=== PATIENT | female | born 1965 | race African-American/Black ===

== ENCOUNTER 2017-10-02 21:21 | Emergency (ER) | payer OTHER ==
[~2017-10-02 21:21] MED LIST: ISOVUE-370 76%-LOCM 1 ML ONE
[2017-10-02 21:47] LABS: Bilirubin Negative (Negative); Blood, Urine Negative (Negative); Glucose, Urine (Dipstick) Negative (Negative); Ketone, Urine Negative (Negative); Nitrite Positive (Negative); Protein, Urine (Dipstick) Negative (Neg-Trace); Urobilinogen 0.2 mg/dL (0.2-1.0)
[2017-10-02 21:50] LABS: Bacteria/HPF None Seen HPF (None Seen); Hyaline Casts/LPF 0-3 HYALINE CAST LPF (0-3 Hyaline); RBC/HPF 0-3 HPF (0-3); Squamous Epithelial None Seen HPF (0-3); WBC/HPF None Seen HPF (0-3)
[2017-10-02 22:33] LABS: Hematocrit 45.5 % (36.0-47.0); Mean Platelet Volume 8.9 fL (7.4-10.4); Metamyelocyte 1 % (0-0); Neutrophil 48 % (42-75); Reactive Lymphocytes 7 % (0-10)
[2017-10-02 22:34] LABS: ALT (SGPT) 29 U/L (8-55); AST (SGOT) 38 U/L (5-34); Alkaline Phosphatase 92 U/L (40-150); Anion Gap 13 mmol/L (10-20); BUN (Urea Nitrogen) 10 mg/dL (9.8-20.1); Bilirubin, Total 0.8 mg/dL (0.2-1.2); Calc. Creatinine Clearance 0 mL/min (70-130); Calcium 9.3 mg/dL (7.8-10.44); Carbon Dioxide 27 mmol/L (22-29); Chloride 103 mmol/L (98-107); Estimated GFR-MDRD Greater than 90; Globulin 4.4 g/dL (2.4-3.5); Lipase 9 U/L (8-78); Protein, Total 8.4 g/dL (6.0-8.3)
--- NOTE | 2017-10-02 22:49 | CT ---
CT ABDOMEN AND PELVIS WITH IV CONTRAST 10/02/17 HISTORY: Abdominal pain. COMPARISON: 10/03/16. FINDINGS: The lung bases are clear. The gallbladder is surgically absent. The lobular fluid density lesion with in the spleen is stable and likely represents a hemangioma. No free fluid or free air are apparent. T he urinary bladder is unremarkable. There are degenerative changes of the lumbar spine. Motion artifa ct and lack of oral contrast limit detail. There is no evidence of bowel obstruction. IMPRESSION: Chronic type findings appear stable. No acute abnormalities are demonstrated. POS: [facility]
[2017-10-02] MEDS ORDERED: Ondansetron HCl/PF 4 MG/2 ML Vial ONE (22:51)
[2017-10-02] MEDS ORDERED: Ketorolac Tromethamine 30 MG/ML VIAL ONE (22:51)
== END 2017-10-02 23:54 | disposition home or self-care (01) ==
LOC: ERS 21:21
DX: R10.9 Unspecified abdominal pain (principal); I10 Essential (primary) hypertension; Z79.899 Other long term (current) drug therapy
CPT/HCPCS: 74177; 80053; 81003; 81015; 83690; 85025; 87086; 96361; 96374; 96375; J1885; J2405

== ENCOUNTER 2017-10-27 06:54 | Outpatient (CLI) | payer OTHER ==
--- NOTE | 2017-10-27 09:15 | ULT ---
COMPLETE ABDOMEN ULTRASOUND: INDICATION: Right upper quadrant pain and gastroesophageal reflux disease. FINDINGS: The visualized abdominal aorta and IVC are unremarkable. The visualized liver demonstrated no focal lesion. The spleen measured 11 cm in size. There are multiple cystic cysts seen within the medial aspect of the spleen likely corresponding to the hypodensity noted on the prior exam. Portions of the lesion a ppear solid. Visualized aspects of the pancreas are unremarkable. The gallbladder is surgically absent. The common bile duct measures 3 mm. The right kidney measures 11.3 cm in length and left measures 10.3 cm in length. IMPRESSION: 1. Stable partially cystic lesion within the spleen found to be stable over a 3-year time period 2013 is suspicious for hemangioma. 2. Cholecystectomy. 3. No definite acute sonographic abnormalities. POS: [facility]
== END 2017-10-27 06:55 | disposition home or self-care (01) ==
LOC: ULT 06:54
PROVIDERS: ATTEND Nurse Practitioner Family
DX: K21.9 Gastro-esophageal reflux disease without esophagitis (principal); R10.11 Right upper quadrant pain; R30.0 Dysuria; E66.01 Morbid (severe) obesity due to excess calories; K86.2 Cyst of pancreas; Z90.49 Acquired absence of other specified parts of digestive tract
CPT/HCPCS: 76700

== ENCOUNTER 2018-01-15 14:40 | Outpatient (CLI) | payer OTHER | END 2018-01-15 14:41 | disposition home or self-care (01) | LOC: BICMAMMO 14:40 | PROVIDERS: ATTEND Nurse Practitioner Family | DX: Z12.31 Encounter for screening mammogram for malignant neoplasm of breast (principal) | CPT/HCPCS: 77067 ==

== ENCOUNTER 2018-07-03 13:25 | Outpatient (CLI) | payer OTHER ==
--- NOTE | 2018-07-03 15:17 | ULT ---
RIGHT LOWER EXTREMITY VENOUS DOPPLER: Date: 07/03/18 HISTORY: Right-sided leg pain. COMPARISON: None. FINDINGS: Real-time Greco scale and color Doppler with spectral analysis of the right lower extremity venous sy stem was performed. The common femoral, femoral, proximal portions of greater saphenous and deep femo ral veins, as well as the popliteal and posterior tibial veins were interrogated. Normal flow, augmentation, and compression. IMPRESSION: No deep venous thrombosis. POS: [facility]
--- NOTE | 2018-07-03 16:14 | ULT ---
ULTRASOUND DOPPLER DUPLEX ARTERIAL RIGHT LOWER EXTREMITY: 07/03/18 HISTORY: 52-year-old with: M79.604, right leg pain. M25.561, pain in right knee. TECHNIQUE: Color flow, spectral analysis, and greco scale images of major arteries of right lower extremity. FINDINGS: Greco scale visualization of the arteries is limited because of body habitus. Highest peak systolic ve locities given in cm/s, followed by pulsed doppler waveforms. Common femoral: 160, triphasic. Profunda femoral: 75, biphasic. Superficial femoral, proximal: 145, triphasic. Superficial femoral, mid: 165, triphasic. Superficial femoral, distal: 45, question biphasic versus triphasic. Popliteal: 50, biphasic. Anterior tibial: 25, biphasic. Posterior tibial: 20, triphasic. Dorsalis pedis: 25, biphasic. IMPRESSION: Large drop in peak systolic velocity between the mid and distal portions of the right superficial fem oral artery, suggestive of high grade stenosis there. POS: [facility]
== END 2018-07-03 13:26 | disposition home or self-care (01) ==
LOC: ULT 13:25
PROVIDERS: ATTEND Nurse Practitioner Family
DX: M23.91 Unspecified internal derangement of right knee (principal); M25.561 Pain in right knee; M79.604 Pain in right leg; I10 Essential (primary) hypertension
CPT/HCPCS: 93923

== ENCOUNTER 2018-12-05 03:59 | Emergency (ER) | payer OTHER ==
[2018-12-05 04:52] LABS: #Basophils 0.1 thou/uL (0.0-0.2); #Eosinphils 0.2 thou/uL (0.0-0.7); #Lymphocytes 1.5 thou/uL (1.20-3.40); #Monocytes 0.7 thou/uL (0.11-0.59); %Basophils 0.9 % (0.0-1.0); %Eosinophils 2.6 % (0.0-10.0); %Lymphocytes 23.8 % (21.0-51.0); %Monocytes 11.1 % (0.0-10.0); %Neutrophils 61.6 % (42.0-75.0); Hemoglobin 15.2 g/dL (12.0-16.0); Mean Corpuscular HGB CONC 31.9 g/dL (32.0-36.0); Mean Corpuscular Hemoglobin 28.3 pg (27.0-31.0); Mean Corpuscular Volume 88.5 fL (78.0-98.0); Mean Platelet Volume 9.3 fL (7.4-10.4); Platelet Count 193 thou/uL (130-400); RBC Distribution Width 12.4 % (11.5-14.5); Red Blood Cell (RBC) Count 5.37 mill/uL (4.20-5.40); White Blood Cell (WBC) Count 6.4 thou/uL (4.8-10.8)
[2018-12-05 04:53] LABS: Bilirubin Negative (Negative); Blood, Urine Negative (Negative); Glucose, Urine (Dipstick) Negative (Negative); Leukocyte Negative (Negative); Nitrite Negative (Negative); Protein, Urine (Dipstick) Negative (Neg-Trace); Urobilinogen 0.2 mg/dL (0.2-1.0)
[2018-12-05 04:54] LABS: Clarity Clear (Clear)
[2018-12-05 04:55] LABS: Specific Gravity, Urine 1.003 (1.002-1.036)
[2018-12-05 05:16] LABS: ALT (SGPT) 18 U/L (8-55); AST (SGOT) 17 U/L (5-34); Albumin 4.2 g/dL (3.5-5.0); Alkaline Phosphatase 95 U/L (40-150); Anion Gap 13 mmol/L (10-20); BUN (Urea Nitrogen) 11 mg/dL (9.8-20.1); Bilirubin, Total 1.1 mg/dL (0.2-1.2); Calc. Creatinine Clearance 0 mL/min (70-130); Calcium 10.3 mg/dL (7.8-10.44); Carbon Dioxide 28 mmol/L (22-29); Chloride 103 mmol/L (98-107); Estimated GFR-MDRD Greater than 90; Globulin 3.7 g/dL (2.4-3.5); Glucose 107 mg/dL (70-105); Potassium 3.7 mmol/L (3.5-5.1); Protein, Total 7.9 g/dL (6.0-8.3); Sodium 140 mmol/L (136-145)
== END 2018-12-05 06:45 | disposition home or self-care (01) ==
LOC: ERS 03:59
DX: F41.9 Anxiety disorder, unspecified (principal); I10 Essential (primary) hypertension; Z79.899 Other long term (current) drug therapy
CPT/HCPCS: 36415; 80053; 81003; 84484; 85025; 93005

== ENCOUNTER 2019-01-21 13:50 | Outpatient (CLI) | payer OTHER ==
--- NOTE | 2019-01-22 10:47 | MMO ---
Bilateral MAMMO Bilat Screen [facility]. CLINICAL HISTORY: Patient is 53 years old and is seen for screening. The patient has the following family history of breast cancer: maternal aunt. The patient has no personal history of cancer. The patient has a history of left Excisional Biopsy - benign. VIEWS: The views performed were: bilateral craniocaudal and bilateral mediolateral oblique. FILMS COMPARED: The present examination has been compared to prior imaging studies performed at [facility] on 01/05/2015, 01/12/2016, 01/14/2017 and 01/15/2018, and at [facility] on 10/04/2010, 10/15/2011, 11/02/2012, 11/03/2013 and 11/04/2013. This study has been interpreted with the assistance of computer-aided detection. MAMMOGRAM FINDINGS: There are scattered fibroglandular densities. Finding 1: There are benign appearing calcifications seen in both breasts. Finding 2: There is a biopsy clip seen in the left breast. There are no suspicious masses, calcifications or areas of architectural distortion. IMPRESSION: ALL ABOVE FINDINGS ARE BENIGN. A ROUTINE FOLLOW-UP MAMMOGRAM IN 1 YEAR IS RECOMMENDED. ACR BI-RADS Category 2 - Benign finding MAMMOGRAPHY NOTE: 1. A negative mammogram report should not delay a biopsy if a dominant of clinically suspicious mass is present. 2. Approximately 10% to 15% of breast cancers are not detected by mammography. 3. Adenosis and dense breasts may obscure an underlying neoplasm.
== END 2019-01-21 13:51 | disposition home or self-care (01) ==
LOC: BICMAMMO 13:50
PROVIDERS: ATTEND Nurse Practitioner Family
DX: Z12.31 Encounter for screening mammogram for malignant neoplasm of breast (principal); R92.1 Mammographic calcification found on diagnostic imaging of breast; Z80.3 Family history of malignant neoplasm of breast; Z91.89 Other specified personal risk factors, not elsewhere classified; Z98.890 Other specified postprocedural states
CPT/HCPCS: 77067

== ENCOUNTER 2019-11-22 08:38 | Outpatient (CLI) | payer OTHER ==
--- NOTE | 2019-11-22 10:29 | ULT ---
ABDOMINAL ULTRASOUND: Date: 11/22/2019 HISTORY: Abdominal pain. COMPARISON: CT examination of 10/02/2017. FINDINGS: Real-time imaging of the upper abdomen shows the gallbladder to have been removed. The common duct is 4 mm. The liver measures 17 cm in length. It shows no focal abnormalities. Splenic mass is again dem onstrated. This appears stable as compared to a previous [address] CT and measures 6.2 x 7.4 cm in size co mplex with some cystic appearing components which has been described as a hemangioma. The pancreas is fairly well imaged. Abdominal aorta and IVC regions are unremarkable. Right and left kidneys are within normal limits of size and not obstructed. IMPRESSION: 1. Stable appearance to a complex splenic mass. 2. Post cholecystectomy change. POS: [facility]
== END 2019-11-22 08:39 | disposition home or self-care (01) ==
LOC: BICULT 08:38
PROVIDERS: ATTEND Nurse Practitioner Family
DX: K21.9 Gastro-esophageal reflux disease without esophagitis (principal); A04.8 Other specified bacterial intestinal infections; R10.9 Unspecified abdominal pain; E80.6 Other disorders of bilirubin metabolism; R16.1 Splenomegaly, not elsewhere classified; Z90.49 Acquired absence of other specified parts of digestive tract
CPT/HCPCS: 93975

== ENCOUNTER 2020-01-24 14:04 | Outpatient (CLI) | payer OTHER ==
--- NOTE | 2020-01-24 15:32 | MMO ---
Bilateral MAMMO Bilat Screen [facility]. CLINICAL HISTORY: Patient is 54 years old and is seen for screening. The patient has the following family history of breast cancer: maternal aunt. The patient has no personal history of cancer. The patient has a history of left Excisional Biopsy - benign. VIEWS: The views performed were: bilateral craniocaudal and bilateral mediolateral oblique. FILMS COMPARED: The present examination has been compared to prior imaging studies performed at [facility] on 01/12/2016, 01/14/2017, 01/15/2018 and 01/21/2019. This study has been interpreted with the assistance of computer-aided detection. MAMMOGRAM FINDINGS: There are scattered fibroglandular densities. Finding 1: There are stable benign appearing calcifications seen in both breasts. Finding 2: There are stable amorphous or indistinct calcifications with associated biopsy clip seen in the upper-outer region of the left breast. Finding 3: Stable bilateral dilated ducts. There are no suspicious masses, suspicious calcifications, or new areas of architectural distortion. IMPRESSION: THERE IS NO MAMMOGRAPHIC EVIDENCE OF MALIGNANCY. A ROUTINE FOLLOW-UP MAMMOGRAM IN 1 YEAR IS RECOMMENDED. ACR BI-RADS Category 2 - Benign finding MAMMOGRAPHY NOTE: 1. A negative mammogram report should not delay a biopsy if a dominant of clinically suspicious mass is present. 2. Approximately 10% to 15% of breast cancers are not detected by mammography. 3. Adenosis and dense breasts may obscure an underlying neoplasm. Reported by: ISIDRO LERNER MD Electonically Signed: [id number]
== END 2020-01-24 14:05 | disposition home or self-care (01) ==
LOC: BICMAMMO 14:04
PROVIDERS: ATTEND Nurse Practitioner Family
DX: Z12.31 Encounter for screening mammogram for malignant neoplasm of breast (principal); Z80.3 Family history of malignant neoplasm of breast; Z91.89 Other specified personal risk factors, not elsewhere classified
CPT/HCPCS: 77067

== ENCOUNTER 2021-01-25 14:19 | Outpatient (CLI) | payer OTHER | END 2021-01-25 14:20 | disposition home or self-care (01) | LOC: BICMAMMO 14:19 | PROVIDERS: ATTEND Nurse Practitioner Family | DX: Z12.31 Encounter for screening mammogram for malignant neoplasm of breast (principal); Z80.3 Family history of malignant neoplasm of breast | CPT/HCPCS: 77067 ==

== ENCOUNTER 2021-02-07 14:42 | Outpatient (CLI) | payer OTHER | END 2021-02-07 14:43 | disposition home or self-care (01) | LOC: BICMAMMO 14:42 | PROVIDERS: ATTEND Nurse Practitioner Family | DX: N64.89 Other specified disorders of breast (principal) | CPT/HCPCS: G0279 ==

== ENCOUNTER 2021-05-10 14:40 | Outpatient (CLI) | payer OTHER | END 2021-05-10 14:41 | disposition home or self-care (01) | LOC: BICMAMMO 14:40 | PROVIDERS: ATTEND Registered Nurse | DX: N64.4 Mastodynia (principal) | CPT/HCPCS: G0279 ==

== ENCOUNTER → 2021-06-29 | Day surgery (SDC) | payer OTHER | LOC: BICULT 12:46 | PROVIDERS: ATTEND Surgery | PROC: 0H9T3ZX Drainage of Right Breast, Percutaneous Approach, Diagnostic (ICD-10-PCS; principal; 2021-06-29) | DX: N64.89 Other specified disorders of breast (principal); Z88.5 Allergy status to narcotic agent | CPT/HCPCS: 19083; 88305; 88341; 88342 ==

== ENCOUNTER 2021-07-20 07:29 | Day surgery (SDC) | payer OTHER ==
[2021-07-18 16:49] VITALS: BMI 48.5
[2021-07-20] MEDS ORDERED: Ketorolac Tromethamine 30 MG/ML VIAL ONE (09:23)
[2021-07-20] MEDS ORDERED: Bupivacaine 0.25% HCL 30 ML VIAL ONE (09:49)
[2021-07-20] MEDS ORDERED: Lidocaine 1% w/Epinephrine 1:100K 30 ML VIAL ONE (09:49)
[2021-07-20] MEDS ORDERED: Fentanyl 100 MCG/2 ML VIAL ONE (09:51)
[2021-07-20] MEDS ORDERED: PHENYLEPHRINE-NS 100 MCG/ML 10 ML SYRINGE ONE (10:05)
[2021-07-20] MEDS ORDERED: Lidocaine 1% PF 5 ML VIAL ONE (10:05)
[2021-07-20] MEDS ORDERED: ePHEDrine 50 MG/ML VIAL ONE (10:05)
[2021-07-20] MEDS ORDERED: PROPOFOL 200 MG/20 ML VIAL ONE (10:05)
[2021-07-20] MEDS ORDERED: Ondansetron PF 4 MG/2 ML Vial ONE (10:05)
[2021-07-20] MEDS ORDERED: Dexamethasone 20 MG/5 ML VIAL ONE (10:05)
[2021-07-20] MEDS ORDERED: Glycopyrrolate 0.2 MG/ML 5 ML SYRINGE ONE (10:05)
[2021-07-20] MEDS ORDERED: Isosulfan Blue 50 MG/5 ML VIAL ONE (10:24)
== END 2021-07-20 13:55 | disposition home or self-care (01) ==
LOC: SDC 07:29
PROVIDERS: ATTEND Surgery
PROC: 0HBT0ZZ Excision of Right Breast, Open Approach (ICD-10-PCS; principal; 2021-07-20)
DX: D24.1 Benign neoplasm of right breast (principal); N60.21 Fibroadenosis of right breast; N60.31 Fibrosclerosis of right breast; I10 Essential (primary) hypertension; K21.9 Gastro-esophageal reflux disease without esophagitis; E66.9 Obesity, unspecified; Z68.42 Body mass index [BMI] 45.0-49.9, adult; Z88.5 Allergy status to narcotic agent; Z88.8 Allergy status to other drugs, medicaments and biological substances; Z79.890 Hormone replacement therapy; Z79.899 Other long term (current) drug therapy; Z90.49 Acquired absence of other specified parts of digestive tract; Z90.710 Acquired absence of both cervix and uterus; Z98.890 Other specified postprocedural states; Z87.19 Personal history of other diseases of the digestive system
CPT/HCPCS: 76098; 88307; J0690; J1100; J1885; J2405; J2704; J3010; J3490; Q9968; S0020

== ENCOUNTER 2021-09-13 10:06 | Outpatient (CLI) | payer OTHER | END 2021-09-13 10:07 | disposition home or self-care (01) | LOC: BICMAMMO 10:06 | PROVIDERS: ATTEND Surgery | DX: N60.11 Diffuse cystic mastopathy of right breast (principal) | CPT/HCPCS: G0279 ==

== ENCOUNTER 2021-10-16 12:54 | Outpatient (CLI) | payer OTHER | END 2021-10-16 12:55 | disposition home or self-care (01) | LOC: BICRAD 12:54 | PROVIDERS: ATTEND Nurse Practitioner Family | DX: M54.2 Cervicalgia (principal); M62.838 Other muscle spasm; M47.812 Spondylosis without myelopathy or radiculopathy, cervical region | CPT/HCPCS: 72052 ==

== ENCOUNTER 2021-10-18 07:14 | Observation (INO) | payer OTHER ==
[2021-10-18 08:15] LABS: Bilirubin Negative (Negative); Blood, Urine Negative (Negative); Clarity Clear (Clear); Glucose, Urine (Dipstick) Normal (Negative); Ketone, Urine Negative (Negative); Leukocyte Negative Leu/uL (Negative); Nitrite Negative (Negative); Protein, Urine (Dipstick) Negative (Neg-Trace); Specific Gravity, Urine 1.005 (1.002-1.036); Urobilinogen Normal mg/dL (Less than 2)
[2021-10-18 08:28] LABS: #Basophils 0.1 thou/uL (0.0-0.2); #Lymphocytes 1.3 thou/uL (1.20-3.40); #Monocytes 0.5 thou/uL (0.11-0.59); #Neutrophils 2.5 thou/uL (1.40-6.50); %Basophils 1.4 % (0.0-1.0); %Eosinophils 1.1 % (0.0-10.0); %Lymphocytes 29.4 % (21.0-51.0); %Monocytes 11.5 % (0.0-10.0); %Neutrophils 56.7 % (42.0-75.0); Hemoglobin 14.7 g/dL (12.0-16.0); Mean Corpuscular HGB CONC 32.2 g/dL (32.0-36.0); Mean Corpuscular Hemoglobin 28.3 pg (27.0-31.0); Platelet Count 178 thou/uL (130-400); RBC Distribution Width 12.4 % (11.5-14.5); White Blood Cell (WBC) Count 4.5 thou/uL (4.8-10.8)
[2021-10-18 08:42] LABS: ALT (SGPT) 15 U/L (8-55); AST (SGOT) 17 U/L (5-34); Albumin 3.8 g/dL (3.5-5.0); Alkaline Phosphatase 90 U/L (40-110); Anion Gap 10 mmol/L (10-20); BUN (Urea Nitrogen) 10 mg/dL (9.8-20.1); CK (CPK) 107 U/L (29-168); Calc. Creatinine Clearance 0 mL/min (70-130); Calcium 9.7 mg/dL (7.8-10.44); Carbon Dioxide 31 mmol/L (22-29); Chloride 105 mmol/L (98-107); Globulin 3.9 g/dL (2.4-3.5); Glucose 103 mg/dL (70-105); Potassium 3.8 mmol/L (3.5-5.1); Protein, Total 7.7 g/dL (6.0-8.3); Sodium 142 mmol/L (136-145)
[2021-10-18] MEDS ORDERED: Enoxaparin Sodium 40 MG/0.4 ML SYRINGE SC SCH (10:45)
[2021-10-18] MEDS ORDERED: Gabapentin 300 MG CAP PO SCH (10:45)
[2021-10-18] MEDS ORDERED: busPIRone HCl 10 MG TAB PO SCH (10:45)
[2021-10-18] MEDS ORDERED: Atenolol 25 MG TAB PO SCH (10:45)
[2021-10-18] MEDS ORDERED: Potassium Chloride 20 MEQ TAB PO SCH (11:00)
[2021-10-18 12:19] LABS: SARS-CoV-2 NAA Rapid Test Not Detected (NotDetected)
[2021-10-18 14:26] VITALS: BMI 49.8
[2021-10-18] MEDS: Acetaminophen 325 MG TAB PO PRN (16:05)
[2021-10-18] MEDS ORDERED: Cyclobenzaprine 10 MG TAB PO SCH (21:00)
[2021-10-18] MEDS: Atenolol 25 MG TAB PO SCH (21:31)
[2021-10-18] MEDS: Gabapentin 300 MG CAP PO SCH (21:32)
[2021-10-18] MEDS: busPIRone HCl 10 MG TAB PO SCH (21:32)
[2021-10-19 04:44] LABS: #Eosinphils 0.1 thou/uL (0.0-0.7); #Lymphocytes 2.1 thou/uL (1.20-3.40); #Monocytes 0.8 thou/uL (0.11-0.59); #Neutrophils 2.3 thou/uL (1.40-6.50); %Basophils 0.4 % (0.0-1.0); %Eosinophils 2.6 % (0.0-10.0); %Lymphocytes 39.9 % (21.0-51.0); %Monocytes 14.1 % (0.0-10.0); %Neutrophils 42.9 % (42.0-75.0); Mean Corpuscular HGB CONC 31.9 g/dL (32.0-36.0); Mean Corpuscular Hemoglobin 28.2 pg (27.0-31.0); Mean Corpuscular Volume 88.2 fL (78.0-98.0); Mean Platelet Volume 7.9 fL (7.4-10.4); Platelet Count 169 thou/uL (130-400); RBC Distribution Width 12.2 % (11.5-14.5); Red Blood Cell (RBC) Count 4.62 mill/uL (4.20-5.40); White Blood Cell (WBC) Count 5.3 thou/uL (4.8-10.8)
[2021-10-19 05:05] LABS: Anion Gap 9 mmol/L (10-20); BUN (Urea Nitrogen) 12 mg/dL (9.8-20.1); Calc. Creatinine Clearance 218 mL/min (70-130); Carbon Dioxide 28 mmol/L (22-29); Cardiac Risk 2.7 (Less than 4.5); Chloride 106 mmol/L (98-107); Cholesterol 101 mg/dl (< 200 Desired); Glucose 89 mg/dL (70-105); HDL Cholesterol 37 mg/dL (>60 Neg Risk); LDL Cholesterol, Calculated 56 mg/dL; Potassium 3.4 mmol/L (3.5-5.1); Sodium 140 mmol/L (136-145); Triglycerides 39 mg/dL (Less than 150)
[2021-10-19] MEDS ORDERED: Potassium Chloride 20 MEQ TAB PO SCH (08:00)
[2021-10-19] MEDS: Gabapentin 300 MG CAP PO SCH (09:00)
[2021-10-19] MEDS: busPIRone HCl 10 MG TAB PO SCH (09:00)
[2021-10-19] MEDS: Atenolol 25 MG TAB PO SCH (09:00)
[2021-10-19] MEDS ORDERED: Enoxaparin Sodium 40 MG/0.4 ML SYRINGE SC SCH (09:00)
[2021-10-19] MEDS ORDERED: Aspirin 81 mg Enteric Coated Tablet PO SCH (09:00)
[2021-10-19] MEDS: Acetaminophen 325 MG TAB PO PRN (12:07)
[2021-10-19 15:39] VITALS: BP 120/58; TEMP 97.3
== END 2021-10-19 19:05 | disposition home or self-care (01) ==
LOC: ERS 07:14 → ERHOLD 09:53 → NEURO 13:39
PROVIDERS: ADMIT Student in an Organized Health Care Education/Training Program; ATTEND Family Medicine
DX: R53.1 Weakness (principal); R20.2 Paresthesia of skin; I10 Essential (primary) hypertension; M17.0 Bilateral primary osteoarthritis of knee; I34.0 Nonrheumatic mitral (valve) insufficiency; R26.89 Other abnormalities of gait and mobility; H91.90 Unspecified hearing loss, unspecified ear; M47.812 Spondylosis without myelopathy or radiculopathy, cervical region; M47.814 Spondylosis without myelopathy or radiculopathy, thoracic region; M47.816 Spondylosis without myelopathy or radiculopathy, lumbar region; E66.01 Morbid (severe) obesity due to excess calories; Z68.42 Body mass index [BMI] 45.0-49.9, adult; Z79.899 Other long term (current) drug therapy; Z88.5 Allergy status to narcotic agent; Z88.8 Allergy status to other drugs, medicaments and biological substances; Z20.822 Contact with and (suspected) exposure to COVID-19
CPT/HCPCS: 36415; 70450; 70551; 72050; 72072; 72100; 80048; 80053; 80061; 81003; 82550; 84484; 85025; 93005; 93306; 96372; G0378; J1650; U0002

== ENCOUNTER 2021-10-20 12:35 | Inpatient (IN) | payer OTHER ==
[2021-10-20] MEDS ORDERED: Ondansetron PF 4 MG/2 ML Vial IVP PRN (13:09)
[2021-10-20] MEDS ORDERED: Enoxaparin Sodium 40 MG/0.4 ML SYRINGE SC SCH (13:15)
[2021-10-20] MEDS ORDERED: Loratadine 10 MG TAB PO PRN (13:28)
[2021-10-20] MEDS ORDERED: Atenolol 25 MG TAB PO SCH (13:30)
[2021-10-20] MEDS ORDERED: Lorazepam 2 MG/ML VIAL SLOW IVP PRN (17:07)
[2021-10-20] MEDS: busPIRone HCl 10 MG TAB PO SCH ×2 (17:42→20:51)
[2021-10-20 18:11] VITALS: BMI 60.0
[2021-10-20] MEDS: Cyclobenzaprine 10 MG TAB PO SCH (20:50)
[2021-10-20] MEDS: Gabapentin 300 MG CAP PO SCH (20:50)
[2021-10-20] MEDS: Azelastine 137 MCG/Spray 30 ML NS SCH (21:37)
[2021-10-20] MEDS: Latanoprost 0.005% Ophth Soln 2.5 ml Bottle EA EYE SCH (21:38)
[2021-10-20] MEDS: Fluticasone Propionate Nasal Spray 16 gm Bottle NASAL SCH (21:40)
[2021-10-21 08:07] LABS: #Basophils 0.1 thou/uL (0.0-0.2); #Eosinphils 0.1 thou/uL (0.0-0.7); #Lymphocytes 1.8 thou/uL (1.20-3.40); #Neutrophils 3.9 thou/uL (1.40-6.50); %Basophils 0.8 % (0.0-1.0); %Neutrophils 57.3 % (42.0-75.0); Hemoglobin 14.1 g/dL (12.0-16.0); Mean Corpuscular HGB CONC 32.2 g/dL (32.0-36.0); Mean Corpuscular Hemoglobin 28.2 pg (27.0-31.0); Mean Corpuscular Volume 87.7 fL (78.0-98.0); Mean Platelet Volume 7.7 fL (7.4-10.4); Platelet Count 171 thou/uL (130-400); RBC Distribution Width 12.1 % (11.5-14.5); Red Blood Cell (RBC) Count 5.01 mill/uL (4.20-5.40); White Blood Cell (WBC) Count 6.9 thou/uL (4.8-10.8)
[2021-10-21 08:27] LABS: Anion Gap 12 mmol/L (10-20); BUN (Urea Nitrogen) 11 mg/dL (9.8-20.1); Calc. Creatinine Clearance 283 mL/min (70-130); Calcium 9.5 mg/dL (7.8-10.44); Carbon Dioxide 28 mmol/L (22-29); Chloride 103 mmol/L (98-107); Glucose 96 mg/dL (70-105); Potassium 3.4 mmol/L (3.5-5.1); Sodium 140 mmol/L (136-145)
[2021-10-21] MEDS: Atenolol 25 MG TAB PO SCH (09:09)
[2021-10-21] MEDS: Gabapentin 300 MG CAP PO SCH ×2 (09:10→20:53)
[2021-10-21] MEDS: busPIRone HCl 10 MG TAB PO SCH ×3 (09:10→20:54)
[2021-10-21] MEDS: Enoxaparin Sodium 40 MG/0.4 ML SYRINGE SC SCH (09:11)
[2021-10-21] MEDS: Azelastine 137 MCG/Spray 30 ML NS SCH ×2 (09:12→20:54)
[2021-10-21] MEDS: Fluticasone Propionate Nasal Spray 16 gm Bottle NASAL SCH ×2 (09:13→20:53)
[2021-10-21] MEDS: Cyclobenzaprine 10 MG TAB PO SCH (20:53)
[2021-10-21] MEDS: Latanoprost 0.005% Ophth Soln 2.5 ml Bottle EA EYE SCH (20:54)
[2021-10-22 09:45] LABS: Anion Gap 9 mmol/L (10-20); BUN (Urea Nitrogen) 10 mg/dL (9.8-20.1); Calc. Creatinine Clearance 264 mL/min (70-130); Calcium 9.2 mg/dL (7.8-10.44); Carbon Dioxide 31 mmol/L (22-29); Chloride 103 mmol/L (98-107); Glucose 115 mg/dL (70-105); Potassium 3.5 mmol/L (3.5-5.1); Sodium 139 mmol/L (136-145)
[2021-10-22] MEDS ORDERED: HYDROmorphone 0.5 MG/0.5 ML SYRINGE SLOW IVP SCH (10:15)
[2021-10-22] MEDS: Acetaminophen/Codeine 30-300mg Tablet PO PRN (10:57)
[2021-10-22] MEDS: Gabapentin 300 MG CAP PO SCH ×2 (10:58→21:03)
[2021-10-22] MEDS: Enoxaparin Sodium 40 MG/0.4 ML SYRINGE SC SCH (10:58)
[2021-10-22] MEDS: Azelastine 137 MCG/Spray 30 ML NS SCH ×2 (10:58→21:05)
[2021-10-22] MEDS: Fluticasone Propionate Nasal Spray 16 gm Bottle NASAL SCH ×2 (10:58→21:05)
[2021-10-22] MEDS: busPIRone HCl 10 MG TAB PO SCH ×3 (10:58→21:04)
[2021-10-22] MEDS: Atenolol 25 MG TAB PO SCH (10:59)
[2021-10-22] MEDS: Cyclobenzaprine 10 MG TAB PO SCH (21:04)
[2021-10-22] MEDS: Latanoprost 0.005% Ophth Soln 2.5 ml Bottle EA EYE SCH (21:06)
[2021-10-23] MEDS: Atenolol 25 MG TAB PO SCH (10:03)
[2021-10-23] MEDS: Enoxaparin Sodium 40 MG/0.4 ML SYRINGE SC SCH (10:03)
[2021-10-23] MEDS: Gabapentin 300 MG CAP PO SCH ×2 (10:03→21:23)
[2021-10-23] MEDS: busPIRone HCl 10 MG TAB PO SCH ×3 (10:03→21:23)
[2021-10-23] MEDS: Fluticasone Propionate Nasal Spray 16 gm Bottle NASAL SCH ×2 (10:12→21:24)
[2021-10-23] MEDS: Azelastine 137 MCG/Spray 30 ML NS SCH ×2 (10:12→21:24)
[2021-10-23] MEDS: Acetaminophen/Codeine 30-300mg Tablet PO PRN (16:41)
[2021-10-23] MEDS: Cyclobenzaprine 10 MG TAB PO SCH (21:23)
[2021-10-23] MEDS: Latanoprost 0.005% Ophth Soln 2.5 ml Bottle EA EYE SCH (21:24)
[2021-10-24] MEDS: Atenolol 25 MG TAB PO SCH (09:00)
[2021-10-24] MEDS: busPIRone HCl 10 MG TAB PO SCH ×3 (09:00→20:26)
[2021-10-24] MEDS: Gabapentin 300 MG CAP PO SCH ×2 (09:00→20:26)
[2021-10-24] MEDS: Enoxaparin Sodium 40 MG/0.4 ML SYRINGE SC SCH (09:01)
[2021-10-24] MEDS: Azelastine 137 MCG/Spray 30 ML NS SCH ×2 (09:02→20:25)
[2021-10-24] MEDS: Fluticasone Propionate Nasal Spray 16 gm Bottle NASAL SCH ×2 (09:02→20:25)
[2021-10-24] MEDS ORDERED: Polyethylene Glycol 3350 17 GM Packet PO SCH (14:15)
[2021-10-24] MEDS ORDERED: Docusate 100 MG CAP PO SCH (14:15)
[2021-10-24] MEDS: Latanoprost 0.005% Ophth Soln 2.5 ml Bottle EA EYE SCH (20:25)
[2021-10-24] MEDS: Docusate 100 MG CAP PO SCH (20:26)
[2021-10-24] MEDS: Cyclobenzaprine 10 MG TAB PO SCH (20:26)
[2021-10-25] MEDS ORDERED: Polyethylene Glycol 3350 17 GM Packet PO SCH (09:00)
[2021-10-25] MEDS: Atenolol 25 MG TAB PO SCH (09:00)
[2021-10-25] MEDS: busPIRone HCl 10 MG TAB PO SCH ×2 (09:26→15:54)
[2021-10-25] MEDS: Docusate 100 MG CAP PO SCH (09:26)
[2021-10-25] MEDS: Gabapentin 300 MG CAP PO SCH (09:26)
[2021-10-25] MEDS: Enoxaparin Sodium 40 MG/0.4 ML SYRINGE SC SCH (09:27)
[2021-10-25] MEDS: Fluticasone Propionate Nasal Spray 16 gm Bottle NASAL SCH (09:27)
[2021-10-25] MEDS: Azelastine 137 MCG/Spray 30 ML NS SCH (09:27)
[2021-10-25 20:22] VITALS: BP 102/67; TEMP 98
== END 2021-10-25 19:50 | DRG 554 ==
LOC: ERS 12:35 → SURG A 13:01 → OBSVTOIN 10-22 10:06
PROVIDERS: ADMIT Internal Medicine; ATTEND Internal Medicine
DX: M17.0 Bilateral primary osteoarthritis of knee (principal); Z68.44 Body mass index [BMI] 60.0-69.9, adult; S80.01XA Contusion of right knee, initial encounter; E66.01 Morbid (severe) obesity due to excess calories; I10 Essential (primary) hypertension; R20.2 Paresthesia of skin; F41.9 Anxiety disorder, unspecified; W19.XXXA Unspecified fall, initial encounter; K59.00 Constipation, unspecified; R29.898 Other symptoms and signs involving the musculoskeletal system; Z88.8 Allergy status to other drugs, medicaments and biological substances; Z79.899 Other long term (current) drug therapy; Z90.49 Acquired absence of other specified parts of digestive tract; Z90.710 Acquired absence of both cervix and uterus; Y92.009 Unspecified place in unspecified non-institutional (private) residence as the place of occurrence of the external cause
CPT/HCPCS: 36415; 72125; 74018; 80048; 85025; 96372; G0378; J1650

== ENCOUNTER 2022-02-15 10:59 | Outpatient (CLI) | payer OTHER | END 2022-02-15 11:00 | disposition home or self-care (01) | LOC: DTY/OP 10:59 | PROVIDERS: ATTEND Nurse Practitioner Family | DX: E66.01 Morbid (severe) obesity due to excess calories (principal) | CPT/HCPCS: 97802 ==

== ENCOUNTER 2022-03-22 11:27 | Outpatient (CLI) | payer OTHER | END 2022-03-22 11:28 | disposition home or self-care (01) | LOC: DTY/OP 11:27 | PROVIDERS: ATTEND Nurse Practitioner Family | DX: E66.01 Morbid (severe) obesity due to excess calories (principal) | CPT/HCPCS: 97802 ==

== ENCOUNTER 2022-04-19 11:18 | Outpatient (CLI) | payer OTHER | END 2022-04-19 11:19 | disposition home or self-care (01) | LOC: DTY/OP 11:18 | PROVIDERS: ATTEND Nurse Practitioner Family | DX: E66.01 Morbid (severe) obesity due to excess calories (principal) | CPT/HCPCS: 97802 ==

== ENCOUNTER 2022-05-17 11:32 | Outpatient (CLI) | payer OTHER | END 2022-05-17 11:33 | disposition home or self-care (01) | LOC: DTY/OP 11:32 | PROVIDERS: ATTEND Nurse Practitioner Family | DX: E66.01 Morbid (severe) obesity due to excess calories (principal) | CPT/HCPCS: 97802 ==

== ENCOUNTER 2022-06-21 11:46 | Outpatient (CLI) | payer OTHER | END 2022-06-21 11:47 | disposition home or self-care (01) | LOC: DTY/OP 11:46 | PROVIDERS: ATTEND Nurse Practitioner Family | DX: E66.01 Morbid (severe) obesity due to excess calories (principal); Z68.42 Body mass index [BMI] 45.0-49.9, adult | CPT/HCPCS: 97802 ==

== ENCOUNTER 2022-07-19 11:27 | Outpatient (CLI) | payer OTHER | END 2022-07-19 11:28 | disposition home or self-care (01) | LOC: DTY/OP 11:27 | PROVIDERS: ATTEND Nurse Practitioner Family | DX: E66.01 Morbid (severe) obesity due to excess calories (principal) | CPT/HCPCS: 97802 ==

== ENCOUNTER 2022-09-07 23:15 | Emergency (ER) | payer OTHER ==
[2022-09-08] MEDS ORDERED: Lorazepam 2 MG/ML VIAL ONE (00:12)
[2022-09-08] MEDS ORDERED: Ondansetron PF 4 MG/2 ML Vial ONE (01:00)
[2022-09-08 01:22] LABS: Bilirubin Negative (Negative); Blood, Urine Negative (Negative); Clarity Clear (Clear); Glucose, Urine (Dipstick) Normal (Negative); Ketone, Urine 10 mg/dL (Negative); Leukocyte Negative Leu/uL (Negative); Nitrite Negative (Negative); Protein, Urine (Dipstick) Negative (Neg-Trace); RBC/HPF 0-3 HPF (0-3); Specific Gravity, Urine 1.007 (1.002-1.036); Squamous Epithelial 0-3 HPF (0-3); Urobilinogen Normal mg/dL (Less than 2); WBC/HPF None Seen HPF (0-3); pH, Urine 7.5 (5.0-9.0)
[2022-09-08 01:27] LABS: Bacteria/HPF 1+ HPF (None Seen)
[2022-09-08 02:31] LABS: ALT (SGPT) 17 U/L (8-55); AST (SGOT) 15 U/L (5-34); Albumin 3.7 g/dL (3.5-5.0); Alkaline Phosphatase 84 U/L (40-110); Anion Gap 12 mmol/L (10-20); BUN (Urea Nitrogen) 6 mg/dL (9.8-20.1); Bilirubin, Total 1.2 mg/dL (0.2-1.2); Calc. Creatinine Clearance 0 mL/min (70-130); Carbon Dioxide 27 mmol/L (22-29); Chloride 106 mmol/L (98-107); Estimated GFR 104; Globulin 3.5 g/dL (2.4-3.5); Glucose 116 mg/dL (70-105); Magnesium 1.6 mg/dL (1.6-2.6); Potassium 3.7 mmol/L (3.5-5.1); Protein, Total 7.2 g/dL (6.0-8.3); Sodium 141 mmol/L (136-145)
[2022-09-08 02:34] LABS: #Lymphocytes 1.1 thou/uL (1.20-3.40); #Monocytes 0.5 thou/uL (0.11-0.59); #Neutrophils 3.1 thou/uL (1.40-6.50); %Basophils 0.9 % (0.0-1.0); %Eosinophils 0.8 % (0.0-10.0); %Lymphocytes 22.6 % (21.0-51.0); %Monocytes 9.8 % (0.0-10.0); %Neutrophils 65.8 % (42.0-75.0); Hemoglobin 13.7 g/dL (12.0-16.0); Mean Corpuscular Hemoglobin 27.9 pg (27.0-31.0); Mean Corpuscular Volume 89.9 fL (78.0-98.0); Platelet Count 158 thou/uL (130-400); RBC Distribution Width 12.8 % (11.5-14.5); White Blood Cell (WBC) Count 4.7 thou/uL (4.8-10.8)
== END 2022-09-08 03:18 | disposition home or self-care (01) ==
LOC: ERS 23:15
DX: H81.399 Other peripheral vertigo, unspecified ear (principal); R11.10 Vomiting, unspecified; I10 Essential (primary) hypertension
CPT/HCPCS: 36415; 80053; 81001; 83605; 83690; 83735; 84484; 85025; 93005; 96361; 96374; 96375; J2060; J2405

== ENCOUNTER 2022-09-13 12:15 | Outpatient (CLI) | payer OTHER | END 2022-09-13 12:16 | disposition home or self-care (01) | LOC: DTY/OP 12:15 | PROVIDERS: ATTEND Nurse Practitioner Family | DX: E66.01 Morbid (severe) obesity due to excess calories (principal) | CPT/HCPCS: 97802 ==

== ENCOUNTER 2022-10-15 11:48 | Outpatient (CLI) | payer OTHER | END 2022-10-15 11:49 | disposition home or self-care (01) | LOC: DTY/OP 11:48 | PROVIDERS: ATTEND Nurse Practitioner Family | DX: E66.01 Morbid (severe) obesity due to excess calories (principal); Z68.42 Body mass index [BMI] 45.0-49.9, adult | CPT/HCPCS: 97802 ==

== ENCOUNTER 2022-11-14 11:22 | Outpatient (CLI) | payer OTHER | END 2022-11-14 11:23 | disposition home or self-care (01) | LOC: DTY/OP 11:22 | PROVIDERS: ATTEND Nurse Practitioner Family | DX: E66.01 Morbid (severe) obesity due to excess calories (principal); Z68.42 Body mass index [BMI] 45.0-49.9, adult | CPT/HCPCS: 97802 ==

== ENCOUNTER 2022-11-27 19:00 | Outpatient (CLI) | payer OTHER | END 2022-11-27 19:01 | disposition home or self-care (01) | LOC: SLEEPLAB 19:00 | PROVIDERS: ATTEND Nurse Practitioner Family | DX: G47.33 Obstructive sleep apnea (adult) (pediatric) (principal); F41.9 Anxiety disorder, unspecified; K21.9 Gastro-esophageal reflux disease without esophagitis; E66.9 Obesity, unspecified; R06.83 Snoring; I10 Essential (primary) hypertension | CPT/HCPCS: 95810 ==

== ENCOUNTER 2022-12-13 09:03 | Outpatient (CLI) | payer OTHER | END 2022-12-13 09:04 | disposition home or self-care (01) | LOC: DTY/OP 09:03 | PROVIDERS: ATTEND Nurse Practitioner Family | DX: E66.01 Morbid (severe) obesity due to excess calories (principal) | CPT/HCPCS: 97802 ==

== ENCOUNTER 2023-01-10 10:24 | Outpatient (CLI) | payer OTHER | END 2023-01-10 10:25 | disposition home or self-care (01) | LOC: DTY/OP 10:24 | PROVIDERS: ATTEND Nurse Practitioner Family | DX: E66.01 Morbid (severe) obesity due to excess calories (principal) | CPT/HCPCS: 97802 ==

== ENCOUNTER 2023-01-21 09:50 | Outpatient (CLI) | payer OTHER ==
[2023-01-21 10:43] LABS: #Basophils 0.1 10x3/uL (0.0-0.2); #Eosinphils 0.1 10x3/uL (0.0-0.5); #Monocytes 0.7 10x3/uL (0.0-1.1); #Neutrophils 2.8 10x3/uL (1.5-8.4); %Basophils 0.9 % (0.0-2.0); %Eosinophils 1.5 % (0.0-6.0); %Lymphocytes 31.4 % (18.0-47.0); %Monocytes 12.3 % (0.0-10.0); %Neutrophils 53.5 % (40.0-75.0); Hemoglobin 14.1 g/dL (12.0-15.5); Mean Corpuscular HGB CONC 32.6 g/dL (32.0-36.0); Mean Corpuscular Hemoglobin 27.7 pg (27.0-33.0); Mean Corpuscular Volume 84.9 fl (81.6-98.3); Mean Platelet Volume 11.6 fl (7.4-10.4); Platelet Count 221 10x3/uL (150-450); RBC Distribution Width 13.6 % (11.5-14.5); Red Blood Cell (RBC) Count 5.09 10x6/uL (3.90-5.03); White Blood Cell (WBC) Count 5.3 10x3/uL (3.5-10.5)
[2023-01-21 10:59] LABS: Anion Gap 12 mmol/L (10-20); BUN (Urea Nitrogen) 15 mg/dL (9.8-20.1); Calc. Creatinine Clearance 0 mL/min (70-130); Calcium 9.7 mg/dL (7.8-10.44); Carbon Dioxide 30 mmol/L (22-29); Chloride 103 mmol/L (98-107); Estimated GFR 102; Glucose 89 mg/dL (70-105); Potassium 3.9 mmol/L (3.5-5.1); Sodium 141 mmol/L (136-145)
[2023-01-21 15:32] LABS: Hemoglobin A1c 4.9 % (4.0-6.0)
== END 2023-01-21 09:51 | disposition home or self-care (01) ==
LOC: LABBT 09:50
PROVIDERS: ATTEND Specialist
DX: Z01.812 Encounter for preprocedural laboratory examination (principal); K21.9 Gastro-esophageal reflux disease without esophagitis; E66.01 Morbid (severe) obesity due to excess calories; M17.10 Unilateral primary osteoarthritis, unspecified knee
CPT/HCPCS: 80048; 83036; 85025

== ENCOUNTER 2023-01-21 10:00 | Inpatient (IN) | payer OTHER ==
[2023-02-03 09:59] VITALS: BMI 47.2
[2023-02-05] MEDS ORDERED: Bupivacaine/Epinephrine 0.25% 30 ML VIAL ONE (06:45)
[2023-02-05] MEDS ORDERED: Fentanyl 250 MCG/5 ML VIAL ONE ×2 (06:59→10:40)
[2023-02-05] MEDS ORDERED: HYDROmorphone 0.5 MG/0.5 ML SYRINGE ONE ×2 (06:59→11:25)
[2023-02-05] MEDS ORDERED: Phenylephrine 10 MG/ML VIAL ONE ×2 (07:00→07:42)
[2023-02-05] MEDS ORDERED: Lidocaine 4% Topical Sol 50 ML BOT ONE (07:00)
[2023-02-05] MEDS ORDERED: SUGAMMADEX SODIUM 200 MG/2 ML VIAL ONE (07:00)
[2023-02-05] MEDS ORDERED: Heparin 5,000 UNITS/ML VIAL ONE (07:01)
[2023-02-05] MEDS ORDERED: cefOXitin 2 GM VIAL ONE (07:02)
[2023-02-05] MEDS ORDERED: Sodium Chloride 0.9% 100 ML ONE (07:02)
[2023-02-05] MEDS ORDERED: Ketorolac Tromethamine 30 MG/ML VIAL ONE (07:02)
[2023-02-05] MEDS ORDERED: Ketamine 50 MG/ML (10ML VIAL) ONE (07:33)
[2023-02-05] MEDS ORDERED: Metoclopramide HCl 10 MG/2 ML VIAL ONE (07:42)
[2023-02-05] MEDS ORDERED: Rocuronium Bromide 10 MG/ML (10ML VIAL) ONE (07:42)
[2023-02-05] MEDS ORDERED: PROPOFOL 200 MG/20 ML VIAL ONE (07:42)
[2023-02-05] MEDS ORDERED: Ondansetron PF 4 MG/2 ML Vial ONE (07:42)
[2023-02-05] MEDS ORDERED: Dexamethasone 20 MG/5 ML VIAL ONE (07:42)
[2023-02-05] MEDS ORDERED: Esmolol 100 MG/10 ML VIAL ONE (07:42)
[2023-02-05] MEDS ORDERED: Lidocaine 1% PF 5 ML VIAL ONE (07:42)
[2023-02-05] MEDS ORDERED: Promethazine HCl 25 MG/ML VIAL ONE (10:25)
[2023-02-05] MEDS ORDERED: HYDROmorphone 2 MG/ML VIAL SLOW IVP PRN (10:34)
[2023-02-05] MEDS ORDERED: Ondansetron HCl/PF 4 MG/2 ML Vial IVP PRN (10:34)
[2023-02-05] MEDS ORDERED: Promethazine HCl 25 MG/ML VIAL IM PRN (10:34)
[2023-02-05] MEDS ORDERED: Ipratropium/Albuterol 3 ML NEB NEB PRN (11:13)
[2023-02-05] MEDS ORDERED: hydrALAZINE 20 MG/ML VIAL SLOW IVP PRN (11:13)
[2023-02-05] MEDS ORDERED: diphenhydrAMINE 50 MG/ML VIAL IVP PRN (11:13)
[2023-02-05] MEDS ORDERED: Hydrocodone-Acetamin 15 ML UDCUP PO PRN (11:13)
[2023-02-05] MEDS ORDERED: D5 1/2 NS w/20 mEq KCL 1,000 ML ONE (13:16)
[2023-02-05] MEDS: D5 1/2 NS w/20 mEq KCL 1,000 ML IV SCH ×2 (14:27→21:48)
[2023-02-05] MEDS: Ketorolac Tromethamine 30 MG/ML VIAL IVP SCH ×2 (14:28→16:33)
[2023-02-05] MEDS: Ondansetron PF 4 MG/2 ML Vial IVP PRN (17:31)
[2023-02-05] MEDS: Morphine 2 MG/ML VIAL SLOW IVP PRN (17:31)
[2023-02-05] MEDS: Morphine 4 MG/ML VIAL SLOW IVP PRN (21:47)
[2023-02-06] MEDS: Ketorolac Tromethamine 30 MG/ML VIAL IVP SCH ×5 (01:51→23:50)
[2023-02-06] MEDS: Ondansetron PF 4 MG/2 ML Vial IVP PRN (01:52)
[2023-02-06] MEDS: Morphine 4 MG/ML VIAL SLOW IVP PRN (01:52)
[2023-02-06] MEDS: D5 1/2 NS w/20 mEq KCL 1,000 ML IV SCH ×4 (04:32→23:47)
[2023-02-06 06:04] LABS: Anion Gap 9 mmol/L (10-20); BUN (Urea Nitrogen) 19 mg/dL (9.8-20.1); Calc. Creatinine Clearance 189 mL/min (70-130); Calcium 8.5 mg/dL (7.8-10.44); Carbon Dioxide 26 mmol/L (22-29); Chloride 106 mmol/L (98-107); Estimated GFR 102; Glucose 164 mg/dL (70-105); Potassium 3.8 mmol/L (3.5-5.1); Sodium 137 mmol/L (136-145)
[2023-02-06 06:28] LABS: Hemoglobin 13.1 g/dL (12.0-16.0); Mean Corpuscular HGB CONC 35.4 g/dL (32.0-36.0); Mean Corpuscular Hemoglobin 31.8 pg (27.0-31.0); Mean Corpuscular Volume 89.7 fl (78.0-98.0); Mean Platelet Volume 9.4 fL (7.4-10.4); Platelet Count 205 10x3/uL (130-400); RBC Distribution Width 12.2 % (11.5-14.5); Red Blood Cell (RBC) Count 4.12 mill/uL (4.20-5.40); White Blood Cell (WBC) Count 25.3 10x3/uL (4.8-10.8)
[2023-02-06 06:46] LABS: Band 4 % (5-11); Lymphocytes 6 % (21-51); MDiff Complete? YES; Monocytes 15 % (0-10); Neutrophil 75 % (42-75); Platelet Morphology Comment Appears Adequate; RBC Morphology Normal
[2023-02-06] MEDS ORDERED: Ondansetron PF 4 MG/2 ML Vial IVP PRN (08:49)
[2023-02-06] MEDS ORDERED: Pantoprazole 40 MG VIAL IVP SCH ×2 (09:00→21:00)
[2023-02-06] MEDS ORDERED: Sodium Chloride 0.9% 1,000 ML IV SCH (10:30)
[2023-02-06 11:49] LABS: #Basophils 0.1 thou/uL (0.0-0.2); #Lymphocytes 1.9 thou/uL (1.20-3.40); #Monocytes 2.5 thou/uL (0.11-0.59); %Basophils 0.2 % (0.0-1.0); %Lymphocytes 8.7 % (21.0-51.0); %Monocytes 11.6 % (0.0-10.0); %Neutrophils 79.4 % (42.0-75.0); Hemoglobin 12.2 g/dL (12.0-16.0); Mean Corpuscular Hemoglobin 28.9 pg (27.0-31.0); Mean Corpuscular Volume 90.4 fl (78.0-98.0); Mean Platelet Volume 9.2 fL (7.4-10.4); Platelet Count 212 10x3/uL (130-400); RBC Distribution Width 12.2 % (11.5-14.5); Red Blood Cell (RBC) Count 4.21 mill/uL (4.20-5.40); White Blood Cell (WBC) Count 21.4 10x3/uL (4.8-10.8)
[2023-02-06] MEDS: Morphine 2 MG/ML VIAL SLOW IVP PRN (12:38)
[2023-02-06] MEDS ORDERED: Rocuronium Bromide 10 MG/ML (10ML VIAL) ONE (15:50)
[2023-02-06] MEDS ORDERED: Lidocaine 1% PF 5 ML VIAL ONE (15:50)
[2023-02-06] MEDS ORDERED: Succinylcholine Chloride 100 MG/5 ML SYRINGE FS ONE (15:50)
[2023-02-06] MEDS ORDERED: Ondansetron PF 4 MG/2 ML Vial ONE (15:50)
[2023-02-06] MEDS ORDERED: PROPOFOL 200 MG/20 ML VIAL ONE (15:50)
[2023-02-06] MEDS ORDERED: SUGAMMADEX SODIUM 200 MG/2 ML VIAL ONE (16:16)
[2023-02-06] MEDS ORDERED: Pantoprazole 80 MG in Sodium Chloride 0.9% 100 ML IVPB SCH (16:53)
[2023-02-06 18:19] LABS: #Monocytes 1.9 thou/uL (0.11-0.59); %Basophils 0.2 % (0.0-1.0); %Eosinophils 0.2 % (0.0-10.0); %Lymphocytes 18.6 % (21.0-51.0); Hemoglobin 10.9 g/dL (12.0-16.0); Mean Corpuscular HGB CONC 32.6 g/dL (32.0-36.0); Mean Corpuscular Hemoglobin 29.2 pg (27.0-31.0); Mean Corpuscular Volume 89.5 fl (78.0-98.0); Mean Platelet Volume 9.2 fL (7.4-10.4); Platelet Count 183 10x3/uL (130-400); RBC Distribution Width 12.3 % (11.5-14.5); Red Blood Cell (RBC) Count 3.73 mill/uL (4.20-5.40); White Blood Cell (WBC) Count 15.9 10x3/uL (4.8-10.8)
[2023-02-07] MEDS: D5 1/2 NS w/20 mEq KCL 1,000 ML IV SCH ×4 (03:15→18:04)
[2023-02-07] MEDS: Ketorolac Tromethamine 30 MG/ML VIAL IVP SCH ×4 (05:22→23:32)
[2023-02-07 07:21] LABS: #Eosinphils 0.1 thou/uL (0.0-0.7); #Lymphocytes 3.1 thou/uL (1.20-3.40); #Monocytes 1.2 thou/uL (0.11-0.59); #Neutrophils 5.5 thou/uL (1.40-6.50); %Basophils 0.2 % (0.0-1.0); %Eosinophils 0.7 % (0.0-10.0); %Lymphocytes 31.1 % (21.0-51.0); %Monocytes 12.3 % (0.0-10.0); %Neutrophils 55.8 % (42.0-75.0); Hemoglobin 9.2 g/dL (12.0-16.0); Mean Corpuscular HGB CONC 32.9 g/dL (32.0-36.0); Mean Corpuscular Hemoglobin 29.5 pg (27.0-31.0); Mean Corpuscular Volume 89.7 fl (78.0-98.0); Mean Platelet Volume 9.1 fL (7.4-10.4); Platelet Count 149 10x3/uL (130-400); RBC Distribution Width 12.2 % (11.5-14.5); Red Blood Cell (RBC) Count 3.11 mill/uL (4.20-5.40); White Blood Cell (WBC) Count 9.9 10x3/uL (4.8-10.8)
[2023-02-07 07:42] LABS: Anion Gap 8 mmol/L (10-20); BUN (Urea Nitrogen) 19 mg/dL (9.8-20.1); Calc. Creatinine Clearance 224 mL/min (70-130); Calcium 7.7 mg/dL (7.8-10.44); Carbon Dioxide 23 mmol/L (22-29); Chloride 112 mmol/L (98-107); Estimated GFR 107; Glucose 96 mg/dL (70-105); Potassium 3.7 mmol/L (3.5-5.1); Sodium 139 mmol/L (136-145)
[2023-02-07 14:21] LABS: #Eosinphils 0.1 thou/uL (0.0-0.7); #Lymphocytes 3.1 thou/uL (1.20-3.40); #Monocytes 1.2 thou/uL (0.11-0.59); #Neutrophils 4.7 thou/uL (1.40-6.50); %Basophils 0.4 % (0.0-1.0); %Eosinophils 1.6 % (0.0-10.0); %Lymphocytes 33.5 % (21.0-51.0); %Monocytes 13.2 % (0.0-10.0); %Neutrophils 51.3 % (42.0-75.0); Hemoglobin 9.2 g/dL (12.0-16.0); Mean Corpuscular HGB CONC 33.1 g/dL (32.0-36.0); Mean Corpuscular Hemoglobin 29.9 pg (27.0-31.0); Mean Corpuscular Volume 90.5 fl (78.0-98.0); Mean Platelet Volume 8.8 fL (7.4-10.4); Platelet Count 148 10x3/uL (130-400); Red Blood Cell (RBC) Count 3.08 mill/uL (4.20-5.40); White Blood Cell (WBC) Count 9.1 10x3/uL (4.8-10.8)
[2023-02-08] MEDS: Morphine 2 MG/ML VIAL SLOW IVP PRN (03:51)
[2023-02-08] MEDS: Ketorolac Tromethamine 30 MG/ML VIAL IVP SCH ×4 (06:02→23:11)
[2023-02-08] MEDS: D5 1/2 NS w/20 mEq KCL 1,000 ML IV SCH ×2 (06:07→12:34)
[2023-02-08 06:43] LABS: #Eosinphils 0.2 thou/uL (0.0-0.7); #Lymphocytes 2.2 thou/uL (1.20-3.40); #Monocytes 0.8 thou/uL (0.11-0.59); #Neutrophils 2.5 thou/uL (1.40-6.50); %Basophils 0.6 % (0.0-1.0); %Eosinophils 3.3 % (0.0-10.0); %Monocytes 13.5 % (0.0-10.0); %Neutrophils 43.5 % (42.0-75.0); Hemoglobin 9.2 g/dL (12.0-16.0); Mean Corpuscular HGB CONC 33.1 g/dL (32.0-36.0); Mean Corpuscular Hemoglobin 29.8 pg (27.0-31.0); Platelet Count 141 10x3/uL (130-400); RBC Distribution Width 12.2 % (11.5-14.5); Red Blood Cell (RBC) Count 3.07 mill/uL (4.20-5.40); White Blood Cell (WBC) Count 5.7 10x3/uL (4.8-10.8)
[2023-02-09] MEDS: Ketorolac Tromethamine 30 MG/ML VIAL IVP SCH ×2 (05:17→11:55)
[2023-02-09 06:30] LABS: #Eosinphils 0.2 thou/uL (0.0-0.7); #Lymphocytes 1.7 thou/uL (1.20-3.40); #Monocytes 0.8 thou/uL (0.11-0.59); #Neutrophils 2.9 thou/uL (1.40-6.50); %Basophils 0.4 % (0.0-1.0); %Lymphocytes 30.3 % (21.0-51.0); %Monocytes 13.7 % (0.0-10.0); %Neutrophils 51.7 % (42.0-75.0); Hemoglobin 9.5 g/dL (12.0-16.0); Mean Corpuscular HGB CONC 33.4 g/dL (32.0-36.0); Mean Corpuscular Volume 89.9 fl (78.0-98.0); Mean Platelet Volume 8.9 fL (7.4-10.4); Platelet Count 150 10x3/uL (130-400); Red Blood Cell (RBC) Count 3.16 mill/uL (4.20-5.40); White Blood Cell (WBC) Count 5.6 10x3/uL (4.8-10.8)
[2023-02-09] MEDS: D5 1/2 NS w/20 mEq KCL 1,000 ML IV SCH (07:24)
[2023-02-09] MEDS ORDERED: Hydrocodone-Acetamin 15 ML UDCUP PO PRN (08:32)
[2023-02-09 11:57] VITALS: BP 111/67; TEMP 97.8
== END 2023-02-09 15:46 | disposition home or self-care (01) | DRG 620 ==
LOC: SURG A 02-05 05:39 → SJJU 02-05 16:05
PROVIDERS: ADMIT Specialist; ATTEND Specialist
PROC: 0D164ZA Bypass Stomach to Jejunum, Percutaneous Endoscopic Approach (ICD-10-PCS; principal; 2023-02-05)
PROC: 0W3P8ZZ Control Bleeding in Gastrointestinal Tract, Via Natural or Artificial Opening Endoscopic (ICD-10-PCS; 2023-02-06)
DX: E66.01 Morbid (severe) obesity due to excess calories (principal); K91.840 Postprocedural hemorrhage of a digestive system organ or structure following a digestive system procedure; K21.9 Gastro-esophageal reflux disease without esophagitis; M25.50 Pain in unspecified joint; K66.0 Peritoneal adhesions (postprocedural) (postinfection); Z88.8 Allergy status to other drugs, medicaments and biological substances; I10 Essential (primary) hypertension; F41.9 Anxiety disorder, unspecified; M17.0 Bilateral primary osteoarthritis of knee; M54.12 Radiculopathy, cervical region; Z90.710 Acquired absence of both cervix and uterus; Z90.49 Acquired absence of other specified parts of digestive tract; Z68.42 Body mass index [BMI] 45.0-49.9, adult; Y83.8 Other surgical procedures as the cause of abnormal reaction of the patient, or of later complication, without mention of misadventure at the time of the procedure
CPT/HCPCS: 36415; 80048; 85025; 86850; 86900; 86901; 94760; A4649; C1889; C9113; J0694; J1100; J1170; J1644; J1650; J1885; J2270; J2272; J2370; J2405; J2550; J2704; J2765; J3010; J3480; J3490; J7050

== ENCOUNTER 2023-02-12 17:29 | Emergency (ER) | payer OTHER ==
[2023-02-12 18:59] LABS: #Basophils 0.1 thou/uL (0.0-0.2); #Eosinphils 0.2 thou/uL (0.0-0.7); #Lymphocytes 2.6 thou/uL (1.20-3.40); #Monocytes 1.4 thou/uL (0.11-0.59); #Neutrophils 6.5 thou/uL (1.40-6.50); %Basophils 0.9 % (0.0-1.0); %Eosinophils 1.8 % (0.0-10.0); %Lymphocytes 24.2 % (21.0-51.0); %Monocytes 12.9 % (0.0-10.0); %Neutrophils 60.2 % (42.0-75.0); Hemoglobin 11.8 g/dL (12.0-16.0); Mean Corpuscular HGB CONC 33.1 g/dL (32.0-36.0); Mean Corpuscular Hemoglobin 29.5 pg (27.0-31.0); Mean Corpuscular Volume 89.3 fl (78.0-98.0); Mean Platelet Volume 8.3 fL (7.4-10.4); Platelet Count 277 10x3/uL (130-400); RBC Distribution Width 12.9 % (11.5-14.5); White Blood Cell (WBC) Count 10.8 10x3/uL (4.8-10.8)
[2023-02-12 19:43] LABS: ALT (SGPT) 21 U/L (8-55); AST (SGOT) 20 U/L (5-34); Albumin 3.7 g/dL (3.5-5.0); Alkaline Phosphatase 74 U/L (40-110); Anion Gap 22 mmol/L (10-20); BUN (Urea Nitrogen) 7 mg/dL (9.8-20.1); Bilirubin, Total 0.9 mg/dL (0.2-1.2); Calc. Creatinine Clearance 0 mL/min (70-130); Calcium 9.3 mg/dL (7.8-10.44); Carbon Dioxide 14 mmol/L (22-29); Chloride 106 mmol/L (98-107); Estimated GFR 100; Globulin 3.5 g/dL (2.4-3.5); Glucose 63 mg/dL (70-105); Potassium 3.5 mmol/L (3.5-5.1); Protein, Total 7.2 g/dL (6.0-8.3); Sodium 138 mmol/L (136-145)
== END 2023-02-12 20:40 | disposition home or self-care (01) ==
LOC: ERS 17:29
DX: R00.2 Palpitations (principal); I10 Essential (primary) hypertension
CPT/HCPCS: 36415; 71045; 80053; 84484; 85025; 93005

== ENCOUNTER 2023-02-13 10:29 | Day surgery (SDC) | payer OTHER ==
[~2023-02-13 10:29] MED LIST changes: -ISOVUE-370 76%-LOCM 1 ML ONE; +Ondansetron PF 4 MG/2 ML Vial IVP PRN; +Sodium Chloride 0.9% 1,000 ML IV SCH
[2023-02-13 11:24] VITALS: BP 124/59; TEMP 97.6
== END 2023-02-13 13:42 | disposition home or self-care (01) ==
LOC: ONC/OP 10:29
PROVIDERS: ATTEND Specialist
DX: E86.0 Dehydration (principal)
CPT/HCPCS: 36415; 71045; 80053; 84484; 85025; 93005; 96361; 96365; J3411; J7050

== ENCOUNTER 2023-02-15 10:00 | Inpatient (IN) | payer OTHER ==
[2023-02-15 11:27] LABS: #Basophils 0.1 thou/uL (0.0-0.2); #Eosinphils 0.2 thou/uL (0.0-0.7); #Lymphocytes 2.6 thou/uL (1.20-3.40); #Monocytes 1.5 thou/uL (0.11-0.59); #Neutrophils 11.9 thou/uL (1.40-6.50); %Basophils 0.4 % (0.0-1.0); %Eosinophils 1.3 % (0.0-10.0); %Monocytes 9.3 % (0.0-10.0); Hemoglobin 8.6 g/dL (12.0-16.0); Mean Corpuscular HGB CONC 32.8 g/dL (32.0-36.0); Mean Corpuscular Hemoglobin 29.3 pg (27.0-31.0); Mean Corpuscular Volume 89.2 fl (78.0-98.0); Mean Platelet Volume 8.4 fL (7.4-10.4); Platelet Count 351 10x3/uL (130-400); RBC Distribution Width 13.6 % (11.5-14.5); Red Blood Cell (RBC) Count 2.94 mill/uL (4.20-5.40); White Blood Cell (WBC) Count 16.2 10x3/uL (4.8-10.8)
[2023-02-15 11:30] LABS: Bacteria/HPF None Seen HPF (None Seen); Bilirubin Negative (Negative); Blood, Urine 3+ (Negative); Clarity Clear (Clear); Glucose, Urine (Dipstick) Normal (Negative); Ketone, Urine Greater than 150 mg/dL (Negative); Leukocyte Negative Leu/uL (Negative); Nitrite Negative (Negative); Protein, Urine (Dipstick) 20 mg/dL (Neg-Trace); RBC/HPF 0-3 HPF (0-3); Specific Gravity, Urine 1.019 (1.002-1.036); Squamous Epithelial 0-3 HPF (0-3); WBC/HPF 0-3 HPF (0-3); pH, Urine 5.5 (5.0-9.0)
[2023-02-15 11:46] LABS: ALT (SGPT) 13 U/L (8-55); AST (SGOT) 13 U/L (5-34); Albumin 3.5 g/dL (3.5-5.0); Alkaline Phosphatase 58 U/L (40-110); Anion Gap 20 mmol/L (10-20); BUN (Urea Nitrogen) 12 mg/dL (9.8-20.1); Bilirubin, Total 0.4 mg/dL (0.2-1.2); Calc. Creatinine Clearance 0 mL/min (70-130); Calcium 8.9 mg/dL (7.8-10.44); Carbon Dioxide 14 mmol/L (22-29); Chloride 109 mmol/L (98-107); Estimated GFR 92; Globulin 3.1 g/dL (2.4-3.5); Glucose 122 mg/dL (70-105); Potassium 3.6 mmol/L (3.5-5.1); Protein, Total 6.6 g/dL (6.0-8.3); Sodium 139 mmol/L (136-145)
[2023-02-15] MEDS ORDERED: Pantoprazole 40 MG VIAL ONE (11:50)
[2023-02-15] MEDS ORDERED: Ondansetron PF 4 MG/2 ML Vial ONE (13:23)
[2023-02-15] MEDS ORDERED: Piperacillin/Tazobactam 3.375 GM VIAL ONE (13:56)
[2023-02-15] MEDS ORDERED: ADMIXTURE FEE IV SCH (15:00)
[2023-02-15] MEDS ORDERED: HUMAN PROTHROMBIN COMPLX IV SCH (15:00)
[2023-02-15] MEDS ORDERED: Pantoprazole 40 MG VIAL IVP SCH (15:45)
[2023-02-15] MEDS ORDERED: Pantoprazole 80 MG in Sodium Chloride 0.9% 100 ML IVPB SCH (15:45)
[2023-02-15 16:56] LABS: Hemoglobin 10.8 g/dL (12.0-16.0); Mean Corpuscular Volume 90.8 fl (78.0-98.0); Mean Platelet Volume 8.4 fL (7.4-10.4); Platelet Count 311 10x3/uL (130-400); RBC Distribution Width 13.6 % (11.5-14.5); Red Blood Cell (RBC) Count 3.59 mill/uL (4.20-5.40); White Blood Cell (WBC) Count 18.6 10x3/uL (4.8-10.8)
[2023-02-15 17:11] LABS: Band 2 % (5-11); Lymphocytes 17 % (21-51); MDiff Complete? YES; Monocytes 4 % (0-10); Myelocyte 1 % (0-0); Neutrophil 75 % (42-75); Platelet Morphology Comment Appears Adequate; Polychromasia SLIGHT = 2-3 cells (100X) (0-2/hpf)
[2023-02-15 22:27] LABS: #Basophils 0.1 thou/uL (0.0-0.2); #Eosinphils 0.1 thou/uL (0.0-0.7); #Lymphocytes 3.1 thou/uL (1.20-3.40); #Monocytes 2.7 thou/uL (0.11-0.59); #Neutrophils 13.6 thou/uL (1.40-6.50); %Basophils 0.4 % (0.0-1.0); %Eosinophils 0.7 % (0.0-10.0); %Lymphocytes 15.8 % (21.0-51.0); %Neutrophils 69.3 % (42.0-75.0); Hemoglobin 10.6 g/dL (12.0-16.0); Mean Corpuscular HGB CONC 33.5 g/dL (32.0-36.0); Mean Corpuscular Hemoglobin 29.8 pg (27.0-31.0); Mean Corpuscular Volume 88.9 fl (78.0-98.0); Platelet Count 298 10x3/uL (130-400); RBC Distribution Width 13.3 % (11.5-14.5); Red Blood Cell (RBC) Count 3.57 mill/uL (4.20-5.40); White Blood Cell (WBC) Count 19.6 10x3/uL (4.8-10.8)
[2023-02-15] MEDS: Sodium Chloride 0.9% 1,000 ML IV SCH (22:31)
[2023-02-15] MEDS: Piperacillin/Tazobactam 3.375 GM in Sodium Chloride 0.9% 100 ML IVPB SCH (22:31)
[2023-02-15 22:58] VITALS: BMI 45.5
[2023-02-15] MEDS ORDERED: Piperacillin/Tazobactam 3.375 GM in Sodium Chloride 0.9% 100 ML IVPB SCH (23:00)
[2023-02-16] MEDS: Latanoprost 0.005% Ophth Soln 2.5 ml Bottle EA EYE SCH ×2 (00:02→20:34)
[2023-02-16] MEDS: DorzolamidE/Timolol 2%/0.5% Ophth Soln 10 ml Bottle L EYE SCH ×3 (00:03→20:35)
[2023-02-16] MEDS: DorzolamidE/Timolol 2%/0.5% Ophth Soln 10 ml Bottle R EYE SCH ×3 (00:03→21:29)
[2023-02-16] MEDS: Piperacillin/Tazobactam 3.375 GM in Sodium Chloride 0.9% 100 ML IVPB SCH ×3 (02:52→17:43)
[2023-02-16 05:30] LABS: Anion Gap 18 mmol/L (10-20); BUN (Urea Nitrogen) 9 mg/dL (9.8-20.1); Calc. Creatinine Clearance 164 mL/min (70-130); Calcium 8.3 mg/dL (7.8-10.44); Carbon Dioxide 14 mmol/L (22-29); Chloride 115 mmol/L (98-107); Estimated GFR 98; Glucose 123 mg/dL (70-105); Potassium 2.8 mmol/L (3.5-5.1); Sodium 144 mmol/L (136-145)
[2023-02-16 05:33] LABS: Band 3 % (5-11); Hemoglobin 10.4 g/dL (12.0-16.0); Hypochromia SLIGHT = 6-15 cells (100X) (0-5/hpf); Lymphocytes 23 % (21-51); MDiff Complete? YES; Mean Corpuscular HGB CONC 35.2 g/dL (32.0-36.0); Mean Corpuscular Hemoglobin 31.5 pg (27.0-31.0); Mean Corpuscular Volume 89.5 fl (78.0-98.0); Mean Platelet Volume 8.4 fL (7.4-10.4); Monocytes 13 % (0-10); Neutrophil 61 % (42-75); Platelet Count 262 10x3/uL (130-400); Platelet Morphology Comment Appears Adequate; RBC Distribution Width 13.7 % (11.5-14.5); Red Blood Cell (RBC) Count 3.31 mill/uL (4.20-5.40); White Blood Cell (WBC) Count 20.7 10x3/uL (4.8-10.8)
[2023-02-16] MEDS: Sodium Chloride 0.9% 1,000 ML IV SCH (06:27)
[2023-02-16] MEDS ORDERED: Potassium Chloride 40 MEQ in Premix Bag 1 BAG IVPB SCH (07:15)
[2023-02-16] MEDS ORDERED: Potassium Chloride 40 MEQ in Sodium Chloride 0.45% 1,000 ML IV SCH (08:00)
[2023-02-16] MEDS ORDERED: Metoclopramide HCl 10 MG/2 ML VIAL IVP SCH (08:15)
[2023-02-16 08:28] LABS: Magnesium 1.5 mg/dL (1.6-2.6)
[2023-02-16] MEDS: Potassium Chloride 20 MEQ in Premix Bag 1 BAG IVPB SCH ×4 (09:11→17:42)
[2023-02-16] MEDS ORDERED: Ketamine 50 MG/ML (10ML VIAL) ONE (09:40)
[2023-02-16] MEDS ORDERED: Piperacillin/Tazobactam 3.375 GM VIAL ONE (09:49)
[2023-02-16] MEDS ORDERED: Sodium Chloride 0.9% 100 ML ONE (09:49)
[2023-02-16] MEDS ORDERED: EPINEPHrine 1 MG/10 ML Abboject SYRINGE ONE (10:05)
[2023-02-16] MEDS ORDERED: PROPOFOL 200 MG/20 ML VIAL ONE (10:05)
[2023-02-16] MEDS ORDERED: Ondansetron HCl/PF 4 MG/2 ML Vial IVP PRN (10:31)
[2023-02-16] MEDS ORDERED: Promethazine HCl 25 MG/ML VIAL IM PRN (10:31)
[2023-02-16] MEDS ORDERED: Cepastat Lozenges 1 LOZ PO PRN (12:43)
[2023-02-16] MEDS ORDERED: Acetaminophen 650 MG/20.3 ML UDCUP PO PRN (12:46)
[2023-02-16] MEDS ORDERED: Electrolyte Replacement Protocol 1 EACH FS SCH (13:00)
[2023-02-16] MEDS ORDERED: Electrolyte Replacement Protocol FS PRN (13:30)
[2023-02-16] MEDS ORDERED: Metoclopramide HCl 10 MG/2 ML VIAL IVP PRN (13:55)
[2023-02-16] MEDS ORDERED: Magnesium 2 GM/50 ML(in water) 2 GM in Premix Bag 1 BAG IVPB SCH (15:00)
[2023-02-16] MEDS: Simethicone 40 MG/0.6 ML Drop 30 ML BOT PO PRN ×2 (15:20→21:29)
[2023-02-16] MEDS: Potassium Chloride 40 MEQ in Sodium Chloride 0.45% 1,000 ML IV SCH (20:39)
[2023-02-16] MEDS ORDERED: Pantoprazole 40 MG VIAL IVP SCH (21:00)
[2023-02-16] MEDS: fentaNYL 50 mcg/mL 1 mL Vial SLOW IVP PRN (22:00)
[2023-02-16 23:24] LABS: Potassium 3.3 mmol/L (3.5-5.1)
[2023-02-17] MEDS: Piperacillin/Tazobactam 3.375 GM in Sodium Chloride 0.9% 100 ML IVPB SCH ×3 (01:22→17:27)
[2023-02-17] MEDS ORDERED: Pantoprazole 40 MG VIAL IVP SCH (02:15)
[2023-02-17 05:17] LABS: #Basophils 0.1 thou/uL (0.0-0.2); #Eosinphils 0.2 thou/uL (0.0-0.7); #Lymphocytes 3.5 thou/uL (1.20-3.40); #Neutrophils 12.1 thou/uL (1.40-6.50); %Basophils 0.4 % (0.0-1.0); %Eosinophils 1.1 % (0.0-10.0); %Lymphocytes 19.6 % (21.0-51.0); %Monocytes 11.3 % (0.0-10.0); %Neutrophils 67.6 % (42.0-75.0); Hemoglobin 8.9 g/dL (12.0-16.0); Mean Corpuscular Hemoglobin 30.2 pg (27.0-31.0); Mean Corpuscular Volume 88.8 fl (78.0-98.0); Mean Platelet Volume 8.4 fL (7.4-10.4); Platelet Count 249 10x3/uL (130-400); RBC Distribution Width 13.7 % (11.5-14.5); Red Blood Cell (RBC) Count 2.93 mill/uL (4.20-5.40); White Blood Cell (WBC) Count 17.9 10x3/uL (4.8-10.8)
[2023-02-17 05:31] LABS: Anion Gap 13 mmol/L (10-20); BUN (Urea Nitrogen) 7 mg/dL (9.8-20.1); Calc. Creatinine Clearance 195 mL/min (70-130); Calcium 8.2 mg/dL (7.8-10.44); Carbon Dioxide 18 mmol/L (22-29); Chloride 118 mmol/L (98-107); Estimated GFR 103; Glucose 100 mg/dL (70-105); Magnesium 1.8 mg/dL (1.6-2.6); Potassium 3.2 mmol/L (3.5-5.1); Sodium 146 mmol/L (136-145)
[2023-02-17] MEDS ORDERED: Magnesium 2 GM/50 ML(in water) 2 GM in Premix Bag 1 BAG IVPB SCH (08:00)
[2023-02-17] MEDS: DorzolamidE/Timolol 2%/0.5% Ophth Soln 10 ml Bottle R EYE SCH ×2 (08:44→20:27)
[2023-02-17] MEDS: DorzolamidE/Timolol 2%/0.5% Ophth Soln 10 ml Bottle L EYE SCH ×2 (08:44→20:27)
[2023-02-17] MEDS: Simethicone 40 MG/0.6 ML Drop 30 ML BOT PO PRN ×2 (08:45→20:28)
[2023-02-17] MEDS: Potassium Chloride 20 MEQ in Premix Bag 1 BAG IVPB SCH ×2 (08:46→10:44)
[2023-02-17] MEDS: Pantoprazole 40 MG VIAL IVP SCH ×2 (08:47→20:29)
[2023-02-17] MEDS: Potassium Chloride 40 MEQ in Sodium Chloride 0.45% 1,000 ML IV SCH (17:28)
[2023-02-17 17:30] LABS: Potassium 3.5 mmol/L (3.5-5.1)
[2023-02-17] MEDS: Latanoprost 0.005% Ophth Soln 2.5 ml Bottle EA EYE SCH (20:27)
[2023-02-17] MEDS: fentaNYL 50 mcg/mL 1 mL Vial SLOW IVP PRN (22:15)
[2023-02-18] MEDS: Piperacillin/Tazobactam 3.375 GM in Sodium Chloride 0.9% 100 ML IVPB SCH ×3 (01:19→18:02)
[2023-02-18 05:06] LABS: #Basophils 0.1 thou/uL (0.0-0.2); #Eosinphils 0.2 thou/uL (0.0-0.7); #Lymphocytes 3.5 thou/uL (1.20-3.40); #Monocytes 1.4 thou/uL (0.11-0.59); #Neutrophils 7.1 thou/uL (1.40-6.50); %Basophils 0.4 % (0.0-1.0); %Eosinophils 1.5 % (0.0-10.0); %Lymphocytes 28.7 % (21.0-51.0); %Monocytes 11.1 % (0.0-10.0); %Neutrophils 58.3 % (42.0-75.0); Hemoglobin 8.9 g/dL (12.0-16.0); Mean Corpuscular HGB CONC 34.1 g/dL (32.0-36.0); Mean Corpuscular Hemoglobin 30.8 pg (27.0-31.0); Mean Corpuscular Volume 90.5 fl (78.0-98.0); Mean Platelet Volume 8.2 fL (7.4-10.4); Platelet Count 224 10x3/uL (130-400); RBC Distribution Width 14.4 % (11.5-14.5); White Blood Cell (WBC) Count 12.2 10x3/uL (4.8-10.8)
[2023-02-18 05:36] LABS: Anion Gap 12 mmol/L (10-20); BUN (Urea Nitrogen) 4 mg/dL (9.8-20.1); Calc. Creatinine Clearance 198 mL/min (70-130); Calcium 8.1 mg/dL (7.8-10.44); Carbon Dioxide 21 mmol/L (22-29); Chloride 115 mmol/L (98-107); Estimated GFR 104; Glucose 83 mg/dL (70-105); Potassium 3.4 mmol/L (3.5-5.1); Sodium 145 mmol/L (136-145)
[2023-02-18] MEDS: Potassium Chloride 20 MEQ in Premix Bag 1 BAG IVPB SCH ×2 (09:16→14:39)
[2023-02-18] MEDS: DorzolamidE/Timolol 2%/0.5% Ophth Soln 10 ml Bottle R EYE SCH ×2 (09:16→21:57)
[2023-02-18] MEDS: DorzolamidE/Timolol 2%/0.5% Ophth Soln 10 ml Bottle L EYE SCH ×2 (09:16→21:57)
[2023-02-18] MEDS: Pantoprazole 40 MG VIAL IVP SCH ×2 (09:17→21:57)
[2023-02-18 11:25] LABS: Hemoglobin 8.5 g/dL (12.0-16.0)
[2023-02-18] MEDS: Potassium Chloride 40 MEQ in Sodium Chloride 0.45% 1,000 ML IV SCH ×2 (11:37→13:55)
[2023-02-18] MEDS ORDERED: PROPOFOL 200 MG/20 ML VIAL ONE (12:26)
[2023-02-18] MEDS ORDERED: Lidocaine 1% PF 5 ML VIAL ONE (12:26)
[2023-02-18] MEDS ORDERED: Potassium Chloride 20 MEQ in Premix Bag 1 BAG IVPB SCH (14:45)
[2023-02-18] MEDS: Latanoprost 0.005% Ophth Soln 2.5 ml Bottle EA EYE SCH (21:57)
[2023-02-18] MEDS: fentaNYL 50 mcg/mL 1 mL Vial SLOW IVP PRN (22:00)
[2023-02-19] MEDS: Piperacillin/Tazobactam 3.375 GM in Sodium Chloride 0.9% 100 ML IVPB SCH ×2 (02:29→09:42)
[2023-02-19 04:10] LABS: #Eosinphils 0.4 thou/uL (0.0-0.7); #Lymphocytes 2.3 thou/uL (1.20-3.40); #Monocytes 1.3 thou/uL (0.11-0.59); #Neutrophils 12.8 thou/uL (1.40-6.50); %Basophils 0.1 % (0.0-1.0); %Eosinophils 2.3 % (0.0-10.0); %Lymphocytes 13.8 % (21.0-51.0); %Monocytes 7.8 % (0.0-10.0); %Neutrophils 75.9 % (42.0-75.0); Hemoglobin 8.5 g/dL (12.0-16.0); Mean Corpuscular HGB CONC 32.9 g/dL (32.0-36.0); Mean Corpuscular Hemoglobin 30.1 pg (27.0-31.0); Mean Corpuscular Volume 91.6 fl (78.0-98.0); Mean Platelet Volume 7.9 fL (7.4-10.4); Platelet Count 220 10x3/uL (130-400); RBC Distribution Width 14.7 % (11.5-14.5); Red Blood Cell (RBC) Count 2.81 mill/uL (4.20-5.40); White Blood Cell (WBC) Count 16.8 10x3/uL (4.8-10.8)
[2023-02-19 04:27] LABS: Anion Gap 13 mmol/L (10-20); BUN (Urea Nitrogen) Less than 4 mg/dL (9.8-20.1); Calc. Creatinine Clearance 208 mL/min (70-130); Calcium 8.4 mg/dL (7.8-10.44); Carbon Dioxide 22 mmol/L (22-29); Chloride 111 mmol/L (98-107); Estimated GFR 105; Glucose 79 mg/dL (70-105); Potassium 3.7 mmol/L (3.5-5.1); Sodium 142 mmol/L (136-145)
[2023-02-19] MEDS: DorzolamidE/Timolol 2%/0.5% Ophth Soln 10 ml Bottle R EYE SCH (09:42)
[2023-02-19] MEDS: DorzolamidE/Timolol 2%/0.5% Ophth Soln 10 ml Bottle L EYE SCH (09:42)
[2023-02-19] MEDS: Pantoprazole 40 MG VIAL IVP SCH (09:42)
[2023-02-19] MEDS: Potassium Chloride 40 MEQ in Sodium Chloride 0.45% 1,000 ML IV SCH (09:53)
[2023-02-19 12:18] VITALS: BP 112/52; TEMP 97.1
== END 2023-02-19 16:30 | disposition home or self-care (01) | DRG 378 ==
LOC: ERS 10:00 → OBSVTOIN 14:40 → ERHOLD 14:40 → 2NO 20:15
PROVIDERS: ADMIT Family Medicine; ATTEND Internal Medicine
PROC: 30283B1 Transfusion of Nonautologous 4-Factor Prothrombin Complex Concentrate into Vein, Percutaneous Approach (ICD-10-PCS; 2023-02-15)
PROC: 30233N1 Transfusion of Nonautologous Red Blood Cells into Peripheral Vein, Percutaneous Approach (ICD-10-PCS; 2023-02-15)
PROC: 0W3P8ZZ Control Bleeding in Gastrointestinal Tract, Via Natural or Artificial Opening Endoscopic (ICD-10-PCS; principal; 2023-02-16)
PROC: 3E033XZ Introduction of Vasopressor into Peripheral Vein, Percutaneous Approach (ICD-10-PCS; 2023-02-16)
PROC: 0DJ08ZZ Inspection of Upper Intestinal Tract, Via Natural or Artificial Opening Endoscopic (ICD-10-PCS; 2023-02-18)
DX: K28.4 Chronic or unspecified gastrojejunal ulcer with hemorrhage (principal); D62 Acute posthemorrhagic anemia; E87.20 Acidosis, unspecified; N39.0 Urinary tract infection, site not specified; Z68.42 Body mass index [BMI] 45.0-49.9, adult; H91.90 Unspecified hearing loss, unspecified ear; K21.9 Gastro-esophageal reflux disease without esophagitis; E66.01 Morbid (severe) obesity due to excess calories; I10 Essential (primary) hypertension; F41.9 Anxiety disorder, unspecified; H40.9 Unspecified glaucoma; M19.90 Unspecified osteoarthritis, unspecified site; E83.42 Hypomagnesemia; E87.6 Hypokalemia; I45.81 Long QT syndrome; Z74.01 Bed confinement status; Z98.890 Other specified postprocedural states; Z90.49 Acquired absence of other specified parts of digestive tract; Z90.710 Acquired absence of both cervix and uterus; Z83.3 Family history of diabetes mellitus; Z88.8 Allergy status to other drugs, medicaments and biological substances; Z88.6 Allergy status to analgesic agent; Z79.01 Long term (current) use of anticoagulants; Z79.899 Other long term (current) drug therapy; Z98.84 Bariatric surgery status
CPT/HCPCS: 36415; 36430; 74177; 80048; 80053; 81003; 81015; 83605; 83735; 85025; 86850; 86900; 86901; 87040; 87077; 87086; 87186; 93005; 96365; 96375; C9113; J0171; J2405; J2543; J2704; J2765; J3010; J3475; J3480; J3490; J7050; J7168; P9016

== ENCOUNTER 2023-02-27 15:39 | Emergency (ER) | payer OTHER ==
[2023-02-27] MEDS ORDERED: GASTROGRAFIN 30 ML BOT ONE (15:45)
[2023-02-27] MEDS ORDERED: Iopamidol-370 76% 500 ML MDV (1 ML CHARGE) ONE (15:45)
[2023-02-27 16:53] LABS: Hemoglobin 10.6 g/dL (12.0-16.0); Mean Corpuscular HGB CONC 32.2 g/dL (32.0-36.0); Mean Corpuscular Hemoglobin 30.4 pg (27.0-31.0); Mean Corpuscular Volume 94.6 fl (78.0-98.0); Mean Platelet Volume 8.8 fL (7.4-10.4); Platelet Count 192 10x3/uL (130-400); RBC Distribution Width 14.8 % (11.5-14.5); Red Blood Cell (RBC) Count 3.49 mill/uL (4.20-5.40); White Blood Cell (WBC) Count 6.6 10x3/uL (4.8-10.8)
[2023-02-27 17:16] LABS: ALT (SGPT) 8 U/L (8-55); AST (SGOT) 13 U/L (5-34); Albumin 3.6 g/dL (3.5-5.0); Alkaline Phosphatase 52 U/L (40-110); Anion Gap 15 mmol/L (10-20); BUN (Urea Nitrogen) 5 mg/dL (9.8-20.1); Bilirubin, Total 0.7 mg/dL (0.2-1.2); Calc. Creatinine Clearance 0 mL/min (70-130); Calcium 9.5 mg/dL (7.8-10.44); Carbon Dioxide 28 mmol/L (22-29); Chloride 102 mmol/L (98-107); Eosinophils 5 % (0-10); Estimated GFR 105; Glucose 81 mg/dL (70-105); Lipase 5 U/L (8-78); Lymphocytes 19 % (21-51); MDiff Complete? YES; Monocytes 11 % (0-10); Neutrophil 64 % (42-75); Platelet Morphology Comment Appears Adequate; Polychromasia SLIGHT = 2-3 cells (100X) (0-2/hpf); Protein, Total 6.6 g/dL (6.0-8.3); Sodium 142 mmol/L (136-145)
[2023-02-27 19:35] LABS: Bilirubin Negative (Negative); Blood, Urine Negative (Negative); Clarity Clear (Clear); Glucose, Urine (Dipstick) Normal (Negative); Ketone, Urine 150 mg/dL (Negative); Leukocyte Negative Leu/uL (Negative); Nitrite Negative (Negative); Protein, Urine (Dipstick) Negative (Neg-Trace); Specific Gravity, Urine 1.009 (1.002-1.036); Urobilinogen Normal mg/dL (Less than 2); pH, Urine 5.5 (5.0-9.0)
== END 2023-02-27 20:45 | disposition home or self-care (01) ==
LOC: ERS 15:39
DX: K59.00 Constipation, unspecified (principal); I10 Essential (primary) hypertension
CPT/HCPCS: 36415; 74176; 74177; 80053; 81003; 83690; 85025; Q9963; Q9967

== ENCOUNTER 2023-03-19 10:33 | Outpatient (CLI) | payer OTHER | END 2023-03-19 10:34 | disposition home or self-care (01) | LOC: BICMAMMO 10:33 | PROVIDERS: ATTEND Nurse Practitioner Family | DX: Z12.31 Encounter for screening mammogram for malignant neoplasm of breast (principal) | CPT/HCPCS: 77067 ==

== ENCOUNTER 2023-05-25 00:43 | Emergency (ER) | payer OTHER ==
[2023-05-25] MEDS ORDERED: LORazepam 2 MG/ML SYR.(CARPUJECT) ONE (01:43)
[2023-05-25] MEDS ORDERED: Ondansetron PF 4 MG/2 ML Vial ONE (01:43)
[2023-05-25 01:49] LABS: #Eosinphils 0.1 thou/uL (0.0-0.7); #Monocytes 0.8 thou/uL (0.11-0.59); #Neutrophils 3.4 thou/uL (1.40-6.50); %Basophils 0.5 % (0.0-1.0); %Eosinophils 1.4 % (0.0-10.0); %Lymphocytes 32.3 % (21.0-51.0); %Monocytes 12.4 % (0.0-10.0); %Neutrophils 53.1 % (42.0-75.0); Hemoglobin 12.7 g/dL (12.0-16.0); Mean Corpuscular HGB CONC 32.6 g/dL (32.0-36.0); Mean Corpuscular Hemoglobin 27.2 pg (27.0-31.0); Mean Corpuscular Volume 83.5 fl (78.0-98.0); Mean Platelet Volume 13.2 fL (7.4-10.4); Platelet Count 163 10x3/uL (130-400); Red Blood Cell (RBC) Count 4.67 mill/uL (4.20-5.40); White Blood Cell (WBC) Count 6.4 10x3/uL (4.8-10.8)
[2023-05-25 01:55] LABS: RBC Distribution Width 15.9 % (11.5-14.5)
[2023-05-25 02:12] LABS: ALT (SGPT) 18 U/L (8-55); AST (SGOT) 21 U/L (5-34); Albumin 3.7 g/dL (3.5-5.0); Alkaline Phosphatase 74 U/L (40-110); Anion Gap 13 mmol/L (10-20); BUN (Urea Nitrogen) 9 mg/dL (9.8-20.1); Bilirubin, Total 0.9 mg/dL (0.2-1.2); Calc. Creatinine Clearance 0 mL/min (70-130); Carbon Dioxide 28 mmol/L (22-29); Chloride 103 mmol/L (98-107); Estimated GFR 105; Globulin 3.7 g/dL (2.4-3.5); Glucose 101 mg/dL (70-105); Potassium 3.5 mmol/L (3.5-5.1); Protein, Total 7.4 g/dL (6.0-8.3); Sodium 140 mmol/L (136-145)
== END 2023-05-25 03:56 | disposition home or self-care (01) ==
LOC: ERS 00:43
DX: H81.399 Other peripheral vertigo, unspecified ear (principal); I10 Essential (primary) hypertension
CPT/HCPCS: 36415; 80053; 85025; 93005; 96361; 96374; 96375; J2060; J2405

== ENCOUNTER 2023-07-23 12:43 | Emergency (ER) | payer OTHER ==
[~2023-07-23 12:43] MED LIST changes: +Iopamidol-370 76% 500 ML MDV (1 ML CHARGE) ONE; -Ondansetron PF 4 MG/2 ML Vial IVP PRN; -Sodium Chloride 0.9% 1,000 ML IV SCH
[2023-07-23 14:28] LABS: Bacteria/HPF 1+ HPF (None Seen); Bilirubin Negative (Negative); Blood, Urine Negative (Negative); CAUTI Indications for Culture Pelvic or flank pain; Clarity Clear (Clear); Glucose, Urine (Dipstick) Normal (Negative); Ketone, Urine 20 mg/dL (Negative); Leukocyte Negative Leu/uL (Negative); Nitrite Negative (Negative); Protein, Urine (Dipstick) Negative (Neg-Trace); RBC/HPF 0-3 HPF (0-3); Specific Gravity, Urine 1.003 (1.002-1.036); Squamous Epithelial 0-3 HPF (0-3); Urobilinogen Normal mg/dL (Less than 2); WBC/HPF 0-3 HPF (0-3)
[2023-07-23 14:29] LABS: Urine Culture Reflex No No
[2023-07-23 14:44] LABS: #Eosinphils 0.1 thou/uL (0.0-0.7); #Monocytes 0.8 thou/uL (0.11-0.59); #Neutrophils 4.6 thou/uL (1.40-6.50); %Basophils 0.4 % (0.0-1.0); %Eosinophils 1.4 % (0.0-10.0); %Lymphocytes 22.5 % (21.0-51.0); %Monocytes 10.7 % (0.0-10.0); %Neutrophils 64.7 % (42.0-75.0); Hemoglobin 12.8 g/dL (12.0-16.0); Mean Corpuscular Hemoglobin 27.6 pg (27.0-31.0); Mean Corpuscular Volume 86.4 fl (78.0-98.0); Mean Platelet Volume 12.3 fL (7.4-10.4); Platelet Count 177 10x3/uL (130-400); RBC Distribution Width 16.2 % (11.5-14.5); Red Blood Cell (RBC) Count 4.63 mill/uL (4.20-5.40); White Blood Cell (WBC) Count 7.1 10x3/uL (4.8-10.8)
[2023-07-23 15:02] LABS: ALT (SGPT) 16 U/L (8-55); AST (SGOT) 21 U/L (5-34); Albumin 3.8 g/dL (3.5-5.0); Alkaline Phosphatase 76 U/L (40-110); Anion Gap 14 mmol/L (10-20); BUN (Urea Nitrogen) 6 mg/dL (9.8-20.1); Bilirubin, Total 0.7 mg/dL (0.2-1.2); Calc. Creatinine Clearance 0 mL/min (70-130); Calcium 9.9 mg/dL (7.8-10.44); Carbon Dioxide 28 mmol/L (22-29); Chloride 103 mmol/L (98-107); Estimated GFR 107; Globulin 3.7 g/dL (2.4-3.5); Glucose 80 mg/dL (70-105); Potassium 3.6 mmol/L (3.5-5.1); Protein, Total 7.5 g/dL (6.0-8.3); Sodium 141 mmol/L (136-145)
[2023-07-23 15:06] LABS: Troponin I 0.016 ng/mL (< 0.028)
== END 2023-07-23 16:43 | disposition home or self-care (01) ==
LOC: ERS 12:43
DX: R42 Dizziness and giddiness (principal); I10 Essential (primary) hypertension
CPT/HCPCS: 36415; 71275; 80053; 81001; 84484; 85025; 85379; 93005; Q9967

== ENCOUNTER 2023-08-19 00:49 | Observation (INO) | payer OTHER ==
[2023-08-19 01:08] LABS: #Eosinphils 0.1 thou/uL (0.0-0.7); #Monocytes 0.7 thou/uL (0.11-0.59); #Neutrophils 2.8 thou/uL (1.40-6.50); %Basophils 0.5 % (0.0-1.0); %Eosinophils 2.3 % (0.0-10.0); %Lymphocytes 35.4 % (21.0-51.0); %Monocytes 12.3 % (0.0-10.0); %Neutrophils 49.3 % (42.0-75.0); Hematocrit 41.4 % (36.0-47.0); Hemoglobin 13.5 g/dL (12.0-16.0); Mean Corpuscular HGB CONC 32.6 g/dL (32.0-36.0); Mean Corpuscular Hemoglobin 27.8 pg (27.0-31.0); Mean Corpuscular Volume 85.4 fl (78.0-98.0); Mean Platelet Volume 11.6 fL (7.4-10.4); Platelet Count 177 10x3/uL (130-400); RBC Distribution Width 14.6 % (11.5-14.5); Red Blood Cell (RBC) Count 4.85 mill/uL (4.20-5.40); White Blood Cell (WBC) Count 5.7 10x3/uL (4.8-10.8)
[2023-08-19 01:22] LABS: PTT 32.2 sec (22.9-36.1); Prothrombin Time 13.9 sec (12.0-14.7)
[2023-08-19 01:32] LABS: ALT (SGPT) 24 U/L (8-55); AST (SGOT) 26 U/L (5-34); Albumin 3.8 g/dL (3.5-5.0); Alkaline Phosphatase 88 U/L (40-110); Anion Gap 15 mmol/L (10-20); BUN (Urea Nitrogen) 9 mg/dL (9.8-20.1); Bilirubin, Total 0.8 mg/dL (0.2-1.2); Calc. Creatinine Clearance 0 mL/min (70-130); Calcium 10.2 mg/dL (7.8-10.44); Carbon Dioxide 27 mmol/L (22-29); Chloride 103 mmol/L (98-107); Estimated GFR 104; Glucose 103 mg/dL (70-105); Potassium 3.8 mmol/L (3.5-5.1); Protein, Total 7.8 g/dL (6.0-8.3); Sodium 141 mmol/L (136-145)
[2023-08-19 01:35] LABS: Troponin I Less than 0.010 ng/mL (< 0.028)
[2023-08-19] MEDS ORDERED: Aspirin Chewable 81 MG TAB ONE (02:18)
[2023-08-19] MEDS ORDERED: hydrALAZINE 20 MG/ML VIAL SLOW IVP PRN (02:58)
[2023-08-19] MEDS ORDERED: Ondansetron ODT 4 MG TAB PO PRN (03:03)
[2023-08-19] MEDS ORDERED: Acetaminophen 325 MG TAB PO PRN (03:03)
[2023-08-19] MEDS ORDERED: Senokot S 8.6-50 MG TAB PO PRN (03:03)
[2023-08-19 04:31] LABS: #Eosinphils 0.1 thou/uL (0.0-0.7); #Monocytes 0.7 thou/uL (0.11-0.59); #Neutrophils 3.9 thou/uL (1.40-6.50); %Basophils 0.5 % (0.0-1.0); %Eosinophils 1.5 % (0.0-10.0); %Lymphocytes 23.4 % (21.0-51.0); %Neutrophils 63.3 % (42.0-75.0); Hematocrit 36.8 % (36.0-47.0); Mean Corpuscular HGB CONC 32.6 g/dL (32.0-36.0); Mean Corpuscular Hemoglobin 27.5 pg (27.0-31.0); Mean Corpuscular Volume 84.4 fl (78.0-98.0); Mean Platelet Volume 12.5 fL (7.4-10.4); Platelet Count 186 10x3/uL (130-400); RBC Distribution Width 14.6 % (11.5-14.5); Red Blood Cell (RBC) Count 4.36 mill/uL (4.20-5.40); White Blood Cell (WBC) Count 6.2 10x3/uL (4.8-10.8)
[2023-08-19 05:32] VITALS: BMI 39.5
[2023-08-19 07:31] LABS: Anion Gap 13 mmol/L (10-20); BUN (Urea Nitrogen) 8 mg/dL (9.8-20.1); Calc. Creatinine Clearance 188 mL/min (70-130); Carbon Dioxide 28 mmol/L (22-29); Cardiac Risk 3.2 (Less than 4.5); Cholesterol 108 mg/dl (< 200 Desired); Estimated GFR 106; HDL Cholesterol 34 mg/dL (>60 Neg Risk); LDL Cholesterol, Calculated 68 mg/dL; Triglycerides 32 mg/dL (Less than 150)
[2023-08-19 08:31] LABS: Calcium 9.6 mg/dL (7.8-10.44); Chloride 105 mmol/L (98-107); Glucose 98 mg/dL (70-105); Potassium 3.4 mmol/L (3.5-5.1); Sodium 143 mmol/L (136-145)
[2023-08-19] MEDS ORDERED: Lorazepam 2 MG/ML VIAL SLOW IVP PRN (08:36)
[2023-08-19] MEDS: busPIRone HCl 10 MG TAB PO SCH ×2 (09:23→21:06)
[2023-08-19] MEDS: Atenolol 25 MG TAB PO SCH (09:24)
[2023-08-19] MEDS: Oxybutynin 5 MG TAB PO SCH ×2 (09:24→21:06)
[2023-08-19] MEDS: Gabapentin 300 MG CAP PO SCH ×2 (09:24→21:06)
[2023-08-19] MEDS: Aspirin 81 mg Enteric Coated Tablet PO SCH (09:24)
[2023-08-19] MEDS: DorzolamidE/Timolol 2%/0.5% Ophth Soln 10 ml Bottle EA EYE SCH ×2 (09:25→21:05)
[2023-08-19 12:33] LABS: Magnesium 1.7 mg/dL (1.6-2.6)
[2023-08-19] MEDS ORDERED: Iopamidol-370 76% 500 ML MDV (1 ML CHARGE) ONE (15:05)
[2023-08-19 18:41] LABS: Hemoglobin A1c 4.4 % (4.0-6.0)
[2023-08-19] MEDS ORDERED: Latanoprost 0.005% Ophth Soln 2.5 ml Bottle EA EYE SCH (21:00)
[2023-08-19] MEDS ORDERED: Rosuvastatin 20 MG TAB PO SCH (21:00)
[2023-08-19 21:41] LABS: Bacteria/HPF None Seen HPF (None Seen); Bilirubin Negative (Negative); Blood, Urine Negative (Negative); CAUTI Indications for Culture Dysuria,urgency,freq; Clarity Clear (Clear); Glucose, Urine (Dipstick) Normal (Negative); Ketone, Urine 20 mg/dL (Negative); Leukocyte Negative Leu/uL (Negative); Nitrite Negative (Negative); Protein, Urine (Dipstick) Negative (Neg-Trace); RBC/HPF 0-3 HPF (0-3); Squamous Epithelial 0-3 HPF (0-3); Urobilinogen Normal mg/dL (Less than 2); WBC/HPF None Seen HPF (0-3); pH, Urine 6.5 (5.0-9.0)
[2023-08-19 21:44] LABS: Urine Culture Reflex No No
[2023-08-20 05:39] LABS: Anion Gap 13 mmol/L (10-20); BUN (Urea Nitrogen) 9 mg/dL (9.8-20.1); Calc. Creatinine Clearance 164 mL/min (70-130); Calcium 9.4 mg/dL (7.8-10.44); Carbon Dioxide 26 mmol/L (22-29); Chloride 105 mmol/L (98-107); Estimated GFR 103; Glucose 79 mg/dL (70-105); Magnesium 1.8 mg/dL (1.6-2.6); Potassium 3.2 mmol/L (3.5-5.1); Sodium 141 mmol/L (136-145)
[2023-08-20] MEDS ORDERED: Electrolyte Replacement Protocol 1 EACH FS SCH (07:30)
[2023-08-20] MEDS ORDERED: Potassium Chloride 20 MEQ TAB PO SCH (08:00)
[2023-08-20] MEDS: DorzolamidE/Timolol 2%/0.5% Ophth Soln 10 ml Bottle EA EYE SCH (09:25)
[2023-08-20] MEDS: Atenolol 25 MG TAB PO SCH (09:25)
[2023-08-20] MEDS: busPIRone HCl 10 MG TAB PO SCH (09:25)
[2023-08-20] MEDS: Gabapentin 300 MG CAP PO SCH (09:25)
[2023-08-20] MEDS: Aspirin 81 mg Enteric Coated Tablet PO SCH (09:25)
[2023-08-20] MEDS: Oxybutynin 5 MG TAB PO SCH (09:25)
[2023-08-20] MEDS: Magnesium 2 GM/50 ML(in water) 2 GM in Premix Bag 1 BAG IVPB SCH ×2 (11:41→11:44)
[2023-08-20 12:18] VITALS: TEMP 96.8
[2023-08-20 12:51] VITALS: BP 111/74
== END 2023-08-20 15:39 | disposition home or self-care (01) ==
LOC: ERS 00:49 → 2SE 03:10
PROVIDERS: ADMIT Student in an Organized Health Care Education/Training Program; ATTEND Family Medicine
DX: G45.9 Transient cerebral ischemic attack, unspecified (principal); H93.19 Tinnitus, unspecified ear; I08.1 Rheumatic disorders of both mitral and tricuspid valves; M17.10 Unilateral primary osteoarthritis, unspecified knee; H40.9 Unspecified glaucoma; I10 Essential (primary) hypertension; F39 Unspecified mood [affective] disorder; K21.9 Gastro-esophageal reflux disease without esophagitis; H91.3 Deaf nonspeaking, not elsewhere classified; E66.01 Morbid (severe) obesity due to excess calories; Z68.39 Body mass index [BMI] 39.0-39.9, adult; Z88.5 Allergy status to narcotic agent; Z98.84 Bariatric surgery status; Z88.8 Allergy status to other drugs, medicaments and biological substances; Z79.899 Other long term (current) drug therapy; Z98.0 Intestinal bypass and anastomosis status
CPT/HCPCS: 36415; 36416; 70450; 70496; 70498; 70551; 80048; 80053; 80061; 81001; 83036; 83735; 84443; 84484; 85025; 85610; 85730; 93005; 93306; 96374; 96375; G0378; J2060; J3475; Q0162; Q9967

== ENCOUNTER 2023-08-23 08:53 | Emergency (ER) | payer OTHER ==
[2023-08-23 10:58] LABS: SARS-CoV-2 NAA Rapid Test DETECTED (NotDetected)
== END 2023-08-23 11:15 | disposition home or self-care (01) ==
LOC: ERS 08:53
DX: U07.1 COVID-19 (principal); I10 Essential (primary) hypertension
CPT/HCPCS: 71045

== ENCOUNTER 2023-09-01 11:41 | Emergency (ER) | payer OTHER ==
[2023-09-01 13:38] LABS: #Eosinphils 0.1 thou/uL (0.0-0.7); #Neutrophils 3.4 thou/uL (1.40-6.50); %Basophils 0.5 % (0.0-1.0); %Eosinophils 1.9 % (0.0-10.0); %Lymphocytes 27.5 % (21.0-51.0); %Monocytes 15.7 % (0.0-10.0); %Neutrophils 53.9 % (42.0-75.0); Hematocrit 40.4 % (36.0-47.0); Mean Corpuscular HGB CONC 32.2 g/dL (32.0-36.0); Mean Corpuscular Volume 86.9 fl (78.0-98.0); Mean Platelet Volume 11.9 fL (7.4-10.4); Platelet Count 188 10x3/uL (130-400); RBC Distribution Width 14.5 % (11.5-14.5); Red Blood Cell (RBC) Count 4.65 mill/uL (4.20-5.40); White Blood Cell (WBC) Count 6.3 10x3/uL (4.8-10.8)
[2023-09-01] MEDS ORDERED: Ondansetron ODT 4 MG TAB ONE (13:39)
[2023-09-01] MEDS ORDERED: Mag-Al 1200 mg/1200 mg/30 ML UDCUP ONE (13:39)
[2023-09-01] MEDS ORDERED: Ondansetron PF 4 MG/2 ML Vial ONE (13:39)
[2023-09-01 14:58] LABS: ALT (SGPT) 44 U/L (8-55); AST (SGOT) 37 U/L (5-34); Albumin 4.1 g/dL (3.5-5.0); Alkaline Phosphatase 70 U/L (40-110); Anion Gap 14 mmol/L (10-20); BUN (Urea Nitrogen) 6 mg/dL (9.8-20.1); Bilirubin, Total 0.5 mg/dL (0.2-1.2); Calc. Creatinine Clearance 0 mL/min (70-130); Calcium 9.8 mg/dL (7.8-10.44); Carbon Dioxide 27 mmol/L (22-29); Chloride 105 mmol/L (98-107); Estimated GFR 106; Globulin 3.1 g/dL (2.4-3.5); Glucose 98 mg/dL (70-105); Lipase Less than 4 U/L (8-78); Potassium 3.3 mmol/L (3.5-5.1); Protein, Total 7.2 g/dL (6.0-8.3); Sodium 143 mmol/L (136-145)
[2023-09-01 14:59] LABS: Troponin I Less than 0.010 ng/mL (< 0.028)
[2023-09-01 17:43] LABS: Troponin I Less than 0.010 ng/mL (< 0.028)
== END 2023-09-01 17:56 | disposition home or self-care (01) ==
LOC: ERS 11:41
DX: R06.00 Dyspnea, unspecified (principal); R10.9 Unspecified abdominal pain; E87.6 Hypokalemia; N28.89 Other specified disorders of kidney and ureter; R16.1 Splenomegaly, not elsewhere classified; I10 Essential (primary) hypertension; Z79.899 Other long term (current) drug therapy; Z79.82 Long term (current) use of aspirin
CPT/HCPCS: 36415; 71275; 74177; 80053; 83690; 83880; 84484; 85025; 93005; J2405; Q0162; Q9967

== ENCOUNTER 2023-11-15 10:09 | Emergency (ER) | payer OTHER ==
[2023-11-15] MEDS ORDERED: Iopamidol-370 76% 500 ML MDV (1 ML CHARGE) ONE (11:07)
[2023-11-15 11:12] LABS: ALT (SGPT) 18 U/L (8-55); AST (SGOT) 25 U/L (5-34); Albumin 3.6 g/dL (3.5-5.0); Alkaline Phosphatase 74 U/L (40-110); Anion Gap 12 mmol/L (10-20); BUN (Urea Nitrogen) 6 mg/dL (9.8-20.1); Bilirubin, Total 1.2 mg/dL (0.2-1.2); Calc. Creatinine Clearance 0 mL/min (70-130); Calcium 8.9 mg/dL (7.8-10.44); Carbon Dioxide 27 mmol/L (22-29); Chloride 107 mmol/L (98-107); Estimated GFR 107; Globulin 3.4 g/dL (2.4-3.5); Glucose 87 mg/dL (70-105); Lipase 96 U/L (8-78); Potassium 4.1 mmol/L (3.5-5.1); Sodium 142 mmol/L (136-145)
[2023-11-15 11:16] LABS: #Eosinphils 0.2 thou/uL (0.0-0.7); #Neutrophils 6.5 thou/uL (1.40-6.50); %Basophils 0.4 % (0.0-1.0); %Eosinophils 1.7 % (0.0-10.0); %Lymphocytes 13.8 % (21.0-51.0); %Monocytes 11.3 % (0.0-10.0); %Neutrophils 72.5 % (42.0-75.0); Hematocrit 37.9 % (36.0-47.0); Hemoglobin 12.3 g/dL (12.0-16.0); Mean Corpuscular HGB CONC 32.5 g/dL (32.0-36.0); Mean Corpuscular Hemoglobin 27.2 pg (27.0-31.0); Mean Corpuscular Volume 83.7 fl (78.0-98.0); Mean Platelet Volume 12.5 fL (7.4-10.4); Platelet Count 141 10x3/uL (130-400); RBC Distribution Width 15.9 % (11.5-14.5); Red Blood Cell (RBC) Count 4.53 mill/uL (4.20-5.40)
[2023-11-15 11:27] LABS: Bilirubin Negative (Negative); Blood, Urine 3+ (Negative); CAUTI Indications for Culture Dysuria,urgency,freq; Clarity Turbid (Clear); Glucose, Urine (Dipstick) Normal (Negative); Ketone, Urine Trace mg/dL (Negative); Leukocyte 250 Leu/uL (Negative); Nitrite Negative (Negative); Protein, Urine (Dipstick) 20 mg/dL (Neg-Trace); RBC/HPF Greater than 50 HPF (0-3); Specific Gravity, Urine 1.004 (1.002-1.036); Squamous Epithelial None Seen HPF (0-3); Urobilinogen Normal mg/dL (Less than 2); WBC/HPF Greater than 50 HPF (0-3); pH, Urine 7.5 (5.0-9.0)
[2023-11-15 11:32] LABS: INR-International Normal Ratio 1.1; Prothrombin Time 14.1 sec (12.0-14.7)
[2023-11-15 11:33] LABS: PTT 24.6 sec (22.9-36.1)
[2023-11-15 11:37] LABS: Bacteria/HPF 1+ HPF (None Seen)
[2023-11-15 11:38] LABS: Urine Culture Reflex Yes Yes
[2023-11-15] MEDS ORDERED: Sodium Chloride 0.9% 100 ML ONE (12:04)
[2023-11-15] MEDS ORDERED: Ondansetron PF 4 MG/2 ML Vial ONE (12:04)
[2023-11-15] MEDS ORDERED: cefTRIAXone (ROCEPHIN) 1 GM VIAL ONE (12:05)
== END 2023-11-15 16:59 | disposition home or self-care (01) ==
LOC: ERS 10:09
DX: N39.0 Urinary tract infection, site not specified (principal); I10 Essential (primary) hypertension
CPT/HCPCS: 36415; 74177; 80053; 81001; 83605; 83690; 85025; 85610; 85730; 87077; 87086; 87186; 96365; 96375; J0696; J2405; J3490; Q9967

== ENCOUNTER 2024-03-23 08:42 | Outpatient (CLI) | payer OTHER | END 2024-03-23 08:43 | disposition home or self-care (01) | LOC: BICMAMMO 08:42 | PROVIDERS: ATTEND Nurse Practitioner Family | DX: Z12.31 Encounter for screening mammogram for malignant neoplasm of breast (principal); R92.1 Mammographic calcification found on diagnostic imaging of breast; Z80.3 Family history of malignant neoplasm of breast; Z91.89 Other specified personal risk factors, not elsewhere classified | CPT/HCPCS: 77067 ==

== ENCOUNTER 2024-09-13 18:31 | Emergency (ER) | payer OTHER ==
[2024-09-13 19:30] LABS: #Basophils 0.03 10x3/uL (0.0-0.2); %Basophils 0.3 % (0.0-1.0); %Eosinophils 0.5 % (0.0-10.0); %Lymphocytes 22.6 % (21.0-51.0); %Monocytes 9.9 % (0.0-10.0); %Neutrophils 66.5 % (42.0-75.0); Hematocrit 41.3 % (36.0-47.0); Hemoglobin 13.4 g/dL (12.0-16.0); Mean Corpuscular HGB CONC 32.4 g/dL (32.0-36.0); Mean Corpuscular Hemoglobin 27.7 pg (27.0-31.0); Mean Corpuscular Volume 85.3 fL (78.0-98.0); Mean Platelet Volume 11.6 fL (7.4-10.4); Platelet Count 166 10x3/uL (130-400); RBC Distribution Width 14.6 % (11.5-14.5); Red Blood Cell (RBC) Count 4.84 mill/uL (4.20-5.40)
[2024-09-13 19:44] LABS: ALT (SGPT) 32 U/L (8-55); AST (SGOT) 31 U/L (5-34); Albumin 3.8 g/dL (3.5-5.0); Alkaline Phosphatase 101 U/L (40-110); Anion Gap 12 mmol/L (10-20); BUN (Urea Nitrogen) 10 mg/dL (9.8-20.1); Calc. Creatinine Clearance 0 mL/min (70-130); Calcium 9.7 mg/dL (7.8-10.44); Carbon Dioxide 26 mmol/L (22-29); Chloride 104 mmol/L (98-107); Estimated GFR 104; Globulin 3.6 g/dL (2.4-3.5); Glucose 80 mg/dL (70-105); Lipase 7 U/L (8-78); Potassium 3.4 mmol/L (3.5-5.1); Protein, Total 7.4 g/dL (6.0-8.3); Sodium 139 mmol/L (136-145)
[2024-09-13 20:26] LABS: Bilirubin Negative (Negative); Blood, Urine 3+ (Negative); CAUTI Indications for Culture Dysuria,urgency,freq; Clarity Turbid (Clear); Glucose, Urine (Dipstick) Normal (Negative); Ketone, Urine Trace mg/dL (Negative); Leukocyte 500 Leu/uL (Negative); Nitrite Negative (Negative); Protein, Urine (Dipstick) Negative (Neg-Trace); RBC/HPF 21-50 HPF (0-3); Specific Gravity, Urine 1.012 (1.002-1.036); Squamous Epithelial None Seen HPF (0-3); Urobilinogen Normal mg/dL (Less than 2)
[2024-09-13 21:02] LABS: Bacteria/HPF 3+ HPF (None Seen); WBC/HPF 21-50 HPF (0-3)
[2024-09-13 21:03] LABS: Urine Culture Reflex Yes Yes
[2024-09-13] MEDS ORDERED: Sodium Chloride 0.9% 100 ML ONE (21:19)
[2024-09-13] MEDS ORDERED: cefTRIAXone (ROCEPHIN) 2 GM VIAL ONE (21:19)
== END 2024-09-13 22:42 | disposition home or self-care (01) ==
LOC: ERS 18:31
DX: N39.0 Urinary tract infection, site not specified (principal); N28.89 Other specified disorders of kidney and ureter; I10 Essential (primary) hypertension
CPT/HCPCS: 36415; 51701; 74177; 80053; 81001; 83605; 83690; 85025; 87077; 87086; 87186; 96365; J0696; Q9967

== ENCOUNTER 2024-09-19 12:36 | Emergency (ER) | payer OTHER ==
[2024-09-19 14:02] LABS: #Basophils 0.03 10x3/uL (0.0-0.2); %Basophils 0.7 % (0.0-1.0); %Eosinophils 1.1 % (0.0-10.0); %Lymphocytes 37.9 % (21.0-51.0); %Monocytes 12.9 % (0.0-10.0); %Neutrophils 47.2 % (42.0-75.0); Hematocrit 39.5 % (36.0-47.0); Hemoglobin 13.2 g/dL (12.0-16.0); Mean Corpuscular HGB CONC 33.4 g/dL (32.0-36.0); Mean Corpuscular Hemoglobin 27.7 pg (27.0-31.0); Mean Corpuscular Volume 82.8 fL (78.0-98.0); Mean Platelet Volume 11.7 fL (7.4-10.4); Platelet Count 178 10x3/uL (130-400); RBC Distribution Width 14.4 % (11.5-14.5); Red Blood Cell (RBC) Count 4.77 mill/uL (4.20-5.40)
[2024-09-19 14:16] LABS: INR-International Normal Ratio 1.1
[2024-09-19 14:17] LABS: ALT (SGPT) 27 U/L (8-55); AST (SGOT) 31 U/L (5-34); Albumin 3.6 g/dL (3.5-5.0); Alkaline Phosphatase 87 U/L (40-110); Anion Gap 12 mmol/L (10-20); BUN (Urea Nitrogen) 8 mg/dL (9.8-20.1); Bilirubin, Total 0.8 mg/dL (0.2-1.2); Calc. Creatinine Clearance 0 mL/min (70-130); Calcium 9.5 mg/dL (7.8-10.44); Carbon Dioxide 27 mmol/L (22-29); Chloride 105 mmol/L (98-107); Estimated GFR 104; Globulin 3.7 g/dL (2.4-3.5); Glucose 89 mg/dL (70-105); Lipase 6 U/L (8-78); Potassium 4.2 mmol/L (3.5-5.1); Protein, Total 7.3 g/dL (6.0-8.3); Sodium 140 mmol/L (136-145)
== END 2024-09-19 14:43 | disposition home or self-care (01) ==
LOC: ERS 12:36
DX: K62.5 Hemorrhage of anus and rectum (principal); I10 Essential (primary) hypertension
CPT/HCPCS: 36415; 80053; 83690; 85025; 85610; 93005; 99283

== ENCOUNTER 2024-11-07 16:47 | Emergency (ER) | payer OTHER ==
[2024-11-07 18:03] LABS: #Basophils 0.04 10x3/uL (0.0-0.2); %Basophils 0.8 % (0.0-1.0); %Eosinophils 2.1 % (0.0-10.0); %Lymphocytes 53.7 % (21.0-51.0); %Monocytes 11.7 % (0.0-10.0); %Neutrophils 31.5 % (42.0-75.0); Hematocrit 39.8 % (36.0-47.0); Hemoglobin 13.1 g/dL (12.0-16.0); Mean Corpuscular HGB CONC 32.9 g/dL (32.0-36.0); Mean Corpuscular Hemoglobin 27.5 pg (27.0-31.0); Mean Corpuscular Volume 83.4 fL (78.0-98.0); Platelet Count 171 10x3/uL (130-400); RBC Distribution Width 15.3 % (11.5-14.5); Red Blood Cell (RBC) Count 4.77 mill/uL (4.20-5.40)
[2024-11-07 18:16] LABS: ALT (SGPT) 55 U/L (8-55); AST (SGOT) 51 U/L (5-34); Albumin 3.7 g/dL (3.5-5.0); Alkaline Phosphatase 96 U/L (40-110); Anion Gap 13 mmol/L (10-20); BUN (Urea Nitrogen) 12 mg/dL (9.8-20.1); Bilirubin, Total 0.9 mg/dL (0.2-1.2); Calc. Creatinine Clearance 0 mL/min (70-130); Calcium 9.3 mg/dL (7.8-10.44); Carbon Dioxide 27 mmol/L (22-29); Chloride 105 mmol/L (98-107); Estimated GFR 104; Globulin 3.2 g/dL (2.4-3.5); Glucose 82 mg/dL (70-105); Lipase 6 U/L (8-78); Potassium 3.6 mmol/L (3.5-5.1); Protein, Total 6.9 g/dL (6.0-8.3); Sodium 141 mmol/L (136-145)
[2024-11-07 18:22] LABS: Troponin I Less than 0.010 ng/mL (< 0.028)
[2024-11-07] MEDS ORDERED: Acetaminophen/Codeine 30-300mg Tablet ONE (18:30)
[2024-11-07 18:52] LABS: Bacteria/HPF 3+ HPF (None Seen); Bilirubin Negative (Negative); Blood, Urine Negative (Negative); CAUTI Indications for Culture Pelvic or flank pain; Clarity Clear (Clear); Glucose, Urine (Dipstick) Normal (Negative); Ketone, Urine Negative (Negative); Leukocyte 250 Leu/uL (Negative); Nitrite 2+ (Negative); Protein, Urine (Dipstick) Negative (Neg-Trace); RBC/HPF 0-3 HPF (0-3); Specific Gravity, Urine 1.007 (1.002-1.036); Squamous Epithelial None Seen HPF (0-3); Urobilinogen Normal mg/dL (Less than 2)
[2024-11-07 18:54] LABS: Urine Culture Reflex No No
[2024-11-07] MEDS ORDERED: cefTRIAXone (ROCEPHIN) 2 GM VIAL ONE (19:16)
[2024-11-07] MEDS ORDERED: Sodium Chloride 0.9% 100 ML ONE (19:16)
== END 2024-11-07 20:26 | disposition home or self-care (01) ==
LOC: ERS 16:47
DX: N39.0 Urinary tract infection, site not specified (principal); I10 Essential (primary) hypertension
CPT/HCPCS: 36415; 71045; 74176; 80053; 81001; 83690; 83735; 84484; 85025; 93005; 96365; J0696